=== PATIENT | male | born 1965 | race Caucasian/White ===

== ENCOUNTER 2021-06-03 15:16 | Observation (INO) ==
--- NOTE | 2021-06-03 16:09 | CT Scan Report ---
HEAD CT NONCONTRAST CT DOSE: 537.48 mGy.cm HISTORY: Right-sided weakness and numbness. Possible stroke. TECHNIQUE: Multiaxial CT images of the head were performed without the use of intravenous contrast. A utomated exposure control was utilized for this study. A dose lowering technique was utilized adheri ng to the principles of ALARA. Comparison: None. Findings: The paranasal sinuses and mastoid air cells are clear. The calvarium and skull base are int act. There is an old left MCA territory infarct demonstrated by a large area of encephalomalacia. Thi s results in mild ex vacuo dilatation of the left lateral ventricle. There is no mass, hematoma, midl ine shift, acute infarct. Impression: 1. No acute intracranial abnormality. 2. Old left MCA territory infarct. ACT 112: Negative or not required by law. Electronically signed by: Geronimo Javier M.D. 06/03/2021 4:08 PM
[2021-06-03] MEDS ORDERED: OPTIRAY 320 125ml IV ONE (16:22)
[2021-06-03 16:25] LABS: Hematocrit (blood only) 38.8 % (42-52); Hemoglobin 13.6 g/dL (14.0-18.0); Mean Corpuscular Hemoglobin 32.1 pg (25-34); Mean Corpuscular Hgb Conc 35.1 g/dL (32-36); Mean Corpuscular Volume 91.5 fL (80-100); Mean Platelet Volume 8.9 fL (7.4-10.4); Platelet Count 198 K/uL (130-400); RDW Coefficient of Variation 13.6 % (11.5-14.5); RDW Standard Deviation 45.2 fL (36.4-46.3); Red Blood Count 4.24 M/uL (4.7-6.1); White Blood Count 5.83 K/uL (4.8-10.8)
[2021-06-03 16:32] LABS: iSTAT Creatinine 0.8 mg/dl (0.6-1.3); iSTAT Hemoglobin 13.6 g/dl (14.0-18.0); iSTAT Ionized Calcium 1.2 mmol/l (1.12-1.32); iSTAT Potassium 4.3 mmol/L (3.3-5.0)
[2021-06-03 16:43] LABS: Partial Thromboplastin Ratio 0.9; Partial Thromboplastin Time 24.3 Seconds (21.0-31.0); Prothrombin Time 10.3 Seconds (9.0-12.0)
[2021-06-03 16:44] LABS: Alanine Aminotransferase 32 U/L (12-78); Aspartate Aminotransferase 24 U/L (15-37); BUN Creatinine Ratio 9.3 (10-20); Blood Urea Nitrogen 8 mg/dl (7-18); Calcium 8.9 mg/dl (8.5-10.1); Carbon Dioxide 27 mmol/L (21-32); Chloride 97 mmol/L (98-107); Est GFR (African American) 112.9 ml/min; Est GFR (Non-African American) 97.4 ml/min; Glucose 96 mg/dl (70-99); Magnesium 2.4 mg/dl (1.8-2.4); Potassium 4.1 mmol/L (3.5-5.1); Sodium 131 mmol/L (136-145)
[2021-06-03 16:47] LABS: Albumin Globulin Ratio 1.1 (0.9-2); Alkaline Phosphatase 118 U/L (45-117); Bilirubin,Total 0.3 mg/dl (0.2-1); Globulin 3.8 gm/dl (2.5-4.0); Total Protein 7.8 gm/dl (6.4-8.2)
--- NOTE | 2021-06-03 16:48 | CT Scan Report ---
CT ANGIOGRAM OF THE BRAIN; CT ANGIOGRAM OF THE NECK CLINICAL HISTORY: Strokelike symptoms. Headache and weakness. COMPARISON STUDY: Unenhanced CT of the brain dated 06/03/2021. TECHNIQUE: Following the IV administration of 118 of Optiray 320, CT angiogram of the head and neck was performed from the aortic arch to the vertex. Images are reviewed in the axial, sagittal, and cor onal planes. 3-D MIPS images are created and assessed. IV contrast was administered without complicat ion. All measurements were calculated based on NASCET criteria. A dose lowering technique was utiliz ed adhering to the principles of ALARA. CT DOSE: 412.32 mGy.cm FINDINGS: Brain parenchyma: Left MCA territory encephalomalacia is consistent with a remote insult. There is as ymmetric atrophy of the cerebellum. There is no evidence of hemorrhage, mass effect, or evidence of a cute territorial ischemia noting angiographic phase technique. There is no evidence of enhancing mass lesion on the angiogram phase images. The ventricles, sulci, and cisterns are normal in configuratio n. Morin-white matter differentiation is preserved. No extra-axial fluid collection is seen. Thoracic aorta: Visualized portions of the thoracic aorta are normal in caliber. The aortic arch demo nstrates standard 3-vessel anatomy. Right carotid arterial system: The right common carotid artery is widely patent, as a right internal and external carotid arteries. Left carotid arterial system: The left common carotid artery is widely patent, as are the left product management internship al and external carotid arteries. Vertebral arteries: The vertebral arteries are widely patent bilaterally noting a right-sided dominan ce. Subclavian arteries: Widely patent bilaterally. Intracranial vasculature: There is atherosclerotic calcification of the cavernous carotid and vertebr al arteries. The internal carotid arteries are patent at the skull base, as are the anterior and midd le cerebral arteries bilaterally. The vertebrobasilar system and posterior cerebral arteries are wide ly patent. The right vertebral artery is dominant. There is no aneurysm, high-grade stenosis, or foca l vessel cut off seen throughout the intracranial circulation. Jugular veins: Patent bilaterally. Dural sinuses: Patent. Lung apices: Partially visualized upper lobe lung parenchyma appears clear. Soft tissues: The visualized pharyngeal soft tissues are normal in appearance noting angiographic pha se technique. The oropharyngeal airway appears widely patent. The salivary and thyroid glands are nor mal in appearance. No cervical lymphadenopathy is seen. Skeletal structures: The calvarium appears intact. The cervical spine is maintained noting multilevel spondylosis. No lytic or blastic lesion is identified. Orbits: The bony orbits are intact. Orbital contents are normal as visualized. Sinuses and mastoids: The paranasal sinuses are clear. The mastoid air cells are well pneumatized. IMPRESSION: 1. There is no evidence of hemorrhage, mass effect, or acute territorial ischemia noting angiographic phase technique. 2. Left MCA territory encephalomalacia is consistent with a remote insult. 3. Unremarkable CT angiogram of the brain. 4. Unremarkable CT angiogram of the neck. ACT 112: Negative or not required by law. Electronically signed by: Cuate Shelley M.D. 06/03/2021 4:46 PM
--- NOTE | 2021-06-03 16:49 | XRay Report ---
SINGLE VIEW CHEST CLINICAL HISTORY: Strokelike symptoms. FINDINGS: An AP, portable, upright chest radiograph is obtained No prior studies are available for co mparison at the time of dictation. The examination is degraded by portable technique and patient rota tion. The cardiomediastinal silhouette is unremarkable. There is bibasilar atelectasis. The lungs and pleural spaces are otherwise clear. No pneumothorax is seen. The bony thorax is grossly intact. Arth ritic change is seen in the left shoulder. IMPRESSION: No active disease in the chest. ACT 112: Negative or not required by law. Electronically signed by: Cuate Shelley M.D. 06/03/2021 4:48 PM
[2021-06-03 17:52] LABS: Troponin I < 0.015 ng/ml (0-0.045)
[2021-06-03] MEDS ORDERED: ASPIRIN CHEW 324 MG PO STA (18:50)
--- NOTE | 2021-06-03 18:59 | History & Physical Report ---
Date of Service June 03, 2021 Assessment & Plan (1) Symptoms of cerebrovascular accident (CVA): Plan: 55 year old male w/ PMHx of CVA, seizure disorder, and intellectual disability who presents w/ new right sided weakness and altered sensation and is outside tPA treatment window. It is uncertain how much of patient's current symptoms are new vs his baseline. - ddx: considered seizure, infection - HypoNa to 131, less likely to cause neurological symptoms. DM2 diet for now, defer IV fluids - check phenytoin lvls - blood culture and UA - limited by lack of prior outside records regarding stroke and seizure hx. - stroke no tPA orderset w/ q4 neuro checks - neuro consulted - MRI brain ordered - CTA head/neck reviewed, "Left MCA territory encephalomalacia is consistent with a remote insult" - increase home Atorva 20 to 40 mg (high intensity) - permissive hypertension - s/p ASA 325 mg in ED. - monitor via telemetry - trend trop. - consider thumb spica wrist brace if right hand contracture does not improve (2) Hypertension: Plan: - permissive HTN s/p possible stroke. hold home antihypertensives (3) Dyslipidemia: Plan: - increased dose of statin to high dose (4) History of rheumatic fever as a child: Plan: 05/13/21 outpatient echo w/o mention of vegetation or shunt - defer repeat echo unless brain MRI suggestive of embolic stroke (5) Mitral regurgitation: Plan: moderate to severe MR, follows Dr. Heart last echo 05/13/21 Normal systolic function. Myxomatous mitral valve w/ mild prolapse. Mild-mod TR. (6) Seizure disorder: Plan: - per patient in remission x 20 years - continue home phenytoin - check phenytoin lvl (7) Asthma: Plan: - hold home PRN Xopenex. continue home Alvesco (8) Depression: Plan: - continue home regimen Plan: FEN/GI: HH diet. No IV fluids. ppx: Lovenox SQ code: full dispo: med/surg tele History of Present Illness Chief Complaint: CVA symptoms Primary Care Provider: MADHAVI Sharma Edgardo Mark is a 55 y/o male w/ PMHx of intellectual disability, HTN, HLD, MVP, myomatous mitral valve, seizure disorder, L CVA (w/ mild residual R sided wkness) and rheumatic fever during childhood who presents from [facility] w/ new right sided numbness and weakness since 299. No numbness. He states it is at his entire right lower extremity and right hand only, sparing right arm and shoulder. Severity of his symptoms have not changed since this morning. Patient denies other new symptomatic complaints. Per the 2 guards at bedside, patient has had some baseline residual R sided weakness but typically is very active and is seen walking frequently. Today, the patient had difficulty walking because of right leg weakness. The guards are unsure about patient's baseline regarding his hand. Covid immunization: J&J Mar 2021. History limited by use of video lymphedema therapist (Russian) and patient's intellectual disability. Allergies Allergy/AdvReac Type Severity Reaction Status Date / Time No Known Allergies Allergy Unknown Verified 06/03/21 18:11 Home Medications Medication Instructions Recorded Confirmed Type atorvastatin 20 mg tablet 20 mg PO DAILY 04/02/20 06/03/21 History fluoxetine 10 mg capsule 10 mg PO DAILY 04/02/20 06/03/21 History levalbuterol tartrate 45 2 inh INHALATION Q6H PRN 04/02/20 06/03/21 History mcg/actuation aerosol inhaler (Xopenex HFA) risperidone 2 mg tablet 2 mg PO HS tab 05/13/21 06/03/21 History ciclesonide 160 mcg/actuation 2 puff INHALATION Q12H 06/03/21 06/03/21 History aerosol inhaler (Alvesco) risperidone 3 mg tablet 6 mg PO HS 06/03/21 06/03/21 History phenytoin sodium extended 300 mg 300 mg PO DAILY #0 cap 06/04/21 06/03/21 Rx capsule Past Med/Surg History Medical History (Updated 06/04/21 @ 08:56 by Marvin Sadler MD) Aphasia as late effect of cerebrovascular accident Asthma CVA (cerebral vascular accident) Depression Dyslipidemia Heart murmur Hemiparesis affecting dominant side as late effect of cerebrovascular accident Intellectual disability Left ventricular hypertrophy Mitral regurgitation Psychosis Rheumatic fever Seizure disorder Family History Father Heart disease Mother Heart disease Social History Smoking Status: Never smoker Hx Alcohol Use: No Hx Substance Use: No Preferred Language: 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 Chronic mild blurry vision at baseline. Cardiovascular: Denies chest pain/ Chronic mild palpitations. Respiratory: Denies shortness of breath Gastrointestinal: Denies abdominal pain, nausea, vomiting, constipation, diarrhea Genitourinary: + uurinay frequency Musculoskeletal: Denies muscle aches/pain, joint aches/pain Neurological: Denies headache, tingling. + R hand and RLE numbness and weakness. Physical Exam Physical Exam: General: Grossly A&O. NAD. Cooperative. HEENT: Atraumatic, normocephalic. Exam limited by intellectual disability. PERRL. No carotid bruits. Unable to fully cooperate during finger to nose testing. Very slightly R lower faial nando. Pulm: CTAB. -wheezes, -rales, -rhonchi. No respiratory distress. Cardiac: RRR, 3/6 holosytsolic murmur at pulmonic regurg, no reradiation to carotisRad.ial pulses intact and symmetrical. No LE edema. Abdominal: Nontender, nondistended. Toned abd muscles. Integ: Warm, dry intact Neuro: 5+/5 strength and sensation of LUE, BLE, and R shoulder and arm; R fist is in contracture position. 1+/5 strength of R handgrip. Patient is able to lift both feet and move his R arm. Results & Data Results & Data ([facility]) Vital Signs (Past 12 Hours) Vital Signs Temp Pulse Resp BP Pulse Ox 06/03/21 18:50 61 13 97 06/03/21 18:40 64 12 97 06/03/21 18:30 62 15 97 06/03/21 18:20 62 16 97 06/03/21 18:10 61 14 98 06/03/21 18:00 65 13 149/91 H 98 06/03/21 17:50 61 14 97 06/03/21 17:40 62 14 06/03/21 17:30 86 16 06/03/21 17:20 64 16 97 06/03/21 17:10 64 16 97 06/03/21 17:00 62 15 97 06/03/21 16:50 65 14 98 06/03/21 16:42 65 20 97 06/03/21 16:00 78 20 99 06/03/21 15:23 36.5 C 71 18 120/82 97 Laboratory Results No leukocytosis. Hb 13.6. coags wnl. Hypo Na 131.Cr 0.85. alk phos mildly elev 118. neg trop x1. blood cultures ordered Cardiac Enzymes 06/03/21 Range/Units 16:16 AST 24 (15-37) U/L Troponin I < 0.015 (0-0.045) ng/ml Coagulation 06/03/21 Range/Units 16:16 PT 10.3 (9.0-12.0) Seconds APTT 24.3 (21.0-31.0) Seconds CBC 06/03/21 Range/Units 16:16 WBC 5.83 (4.8-10.8) K/uL RBC 4.24 L (4.7-6.1) M/uL Hgb 13.6 L (14.0-18.0) g/dL Hct 38.8 L (42-52) % Plt Count 198 (130-400) K/uL Comprehensive Metabolic Panel 06/03/21 Range/Units 16:16 Sodium 131 L (136-145) mmol/L Potassium 4.1 (3.5-5.1) mmol/L Chloride 97 L (98-107) mmol/L Carbon Dioxide 27 (21-32) mmol/L BUN 8 (7-18) mg/dl Creatinine 0.85 (0.6-1.4) mg/dl Glucose 96 (70-99) mg/dl Calcium 8.9 (8.5-10.1) mg/dl AST 24 (15-37) U/L ALT 32 (12-78) U/L Alkaline Phosphatase 118 H (45-117) U/L Total Protein 7.8 (6.4-8.2) gm/dl Albumin 4.0 (3.4-5.0) gm/dl Intake and Output 06/03/21 06/03/21 06/03/21 06:59 14:59 22:59 Other: Weight 68.039 kg Patient Weight 06/04/21 06:59 Weight 68.039 kg Diagnostic Findings Chest X-Ray 06/03/21 16:00 SINGLE VIEW CHEST CLINICAL HISTORY: Strokelike symptoms. FINDINGS: An AP, portable, upright chest radiograph is obtained No prior studies are available for comparison at the time of dictation. The examination is degraded by portable technique and patient rotation. The cardiomediastinal silhouette is unremarkable. There is bibasilar atelectasis. The lungs and pleural spaces are otherwise clear. No pneumothorax is seen. The bony thorax is grossly intact. Arthritic change is seen in the left shoulder. IMPRESSION: No active disease in the chest. ACT 112: Negative or not required by law. Electronically signed by: Cuate Shelley M.D. 06/03/2021 4:[address] 06/03/21 16:[address] DOSE: 537.48 mGy.cm HISTORY: Right-sided weakness and numbness. Possible stroke. TECHNIQUE: Multiaxial CT images of the head were performed without the use of intravenous contrast. Automated exposure control was utilized for this study. A dose lowering technique was utilized adhering to the principles of ALARA. Comparison: None. Findings: The paranasal sinuses and mastoid air cells are clear. The calvarium and skull base are intact. There is an old left MCA territory infarct demonstrated by a large area of encephalomalacia. This results in mild ex vacuo dilatation of the left lateral ventricle. There is no mass, hematoma, midline shift, acute infarct. Impression: 1. No acute intracranial abnormality. 2. Old left MCA territory infarct. ACT 112: Negative or not required by law. Electronically signed by: Geronimo Javier M.D. 06/03/2021 4:08 PM Head CTA 06/03/21 16:09 CT ANGIOGRAM OF THE BRAIN; CT ANGIOGRAM OF THE NECK CLINICAL HISTORY: Strokelike symptoms. Headache and weakness. COMPARISON STUDY: Unenhanced CT of the brain dated 06/03/2021. TECHNIQUE: Following the IV administration of 118 of Optiray 320, CT angiogram of the head and neck was performed from the aortic arch to the vertex. Images are reviewed in the axial, sagittal, and coronal planes. 3-D MIPS images are created and assessed. IV contrast was administered without complication. All measurements were calculated based on NASCET criteria. A dose lowering technique was utilized adhering to the principles of ALARA. CT DOSE: 412.32 mGy.cm FINDINGS: Brain parenchyma: Left MCA territory encephalomalacia is consistent with a remote insult. There is asymmetric atrophy of the cerebellum. There is no evidence of hemorrhage, mass effect, or evidence of acute territorial ischemia noting angiographic phase technique. There is no evidence of enhancing mass lesion on the angiogram phase images. The ventricles, sulci, and cisterns are no rmal in configuration. Morin-white matter differentiation is preserved. No extra- axial fluid collection is seen. Thoracic aorta: Visualized portions of the thoracic aorta are normal in caliber. The aortic arch demonstrates standard 3-vessel anatomy. Right carotid arterial system: The right common carotid artery is widely patent, as a right internal and external carotid arteries. Left carotid arterial system: The left common carotid artery is widely patent, as are the left internal and external carotid arteries. Vertebral arteries: The vertebral arteries are widely patent bilaterally noting a right-sided dominance. Subclavian arteries: Widely patent bilaterally. Intracranial vasculature: There is atherosclerotic calcification of the cavernous carotid and vertebral arteries. The internal carotid arteries are patent at the skull base, as are the anterior and middle cerebral arteries bilaterally. The vertebrobasilar system and posterior cerebral arteries are widely patent. The right vertebral artery is dominant. There is no aneurysm, high-grade stenosis, or focal vessel cut off seen throughout the intracranial circulation. Jugular veins: Patent bilaterally. Dural sinuses: Patent. Lung apices: Partially visualized upper lobe lung parenchyma appears clear. Soft tissues: The visualized pharyngeal soft tissues are normal in appearance noting angiographic phase technique. The oropharyngeal airway appears widely patent. The salivary and thyroid glands are normal in appearance. No cervical lymphadenopathy is seen. Skeletal structures: The calvarium appears intact. The cervical spine is maintained noting multilevel spondylosis. No lytic or blastic lesion is identified. Orbits: The bony orbits are intact. Orbital contents are normal as visualized. Sinuses and mastoids: The paranasal sinuses are clear. The mastoid air cells are well pneumatized. IMPRESSION: 1. There is no evidence of hemorrhage, mass effect, or acute territorial ischemia noting angiographic phase technique. 2. Left MCA territory encephalomalacia is consistent with a remote insult. 3. Unremarkable CT angiogram of the brain. 4. Unremarkable CT angiogram of the neck. ACT 112: Negative or not required by law. Electronically signed by: Cuate Shelley M.D. 06/03/2021 4:46 PM Neck CTA 06/03/21 16:09 CT ANGIOGRAM OF THE BRAIN; CT ANGIOGRAM OF THE NECK CLINICAL HISTORY: Strokelike symptoms. Headache and weakness. COMPARISON STUDY: Unenhanced CT of the brain dated 06/03/2021. TECHNIQUE: Following the IV administration of 118 of Optiray 320, CT angiogram of the head and neck was performed from the aortic arch to the vertex. Images are reviewed in the axial, sagittal, and coronal planes. 3-D MIPS images are created and assessed. IV contrast was administered without complication. All measurements were calculated based on NASCET criteria. A dose lowering technique was utilized adhering to the principles of ALARA. CT DOSE: 412.32 mGy.cm FINDINGS: Brain parenchyma: Left MCA territory encephalomalacia is consistent with a remote insult. There is asymmetric atrophy of the cerebellum. There is no evidence of hemorrhage, mass effect, or evidence of acute territorial ischemia noting angiographic phase technique. There is no evidence of enhancing mass lesion on the angiogram phase images. The ventricles, sulci, and cisterns are normal in configuration. Morin-white matter differentiation is preserved. No extra-axial fluid collection is seen. Thoracic aorta: Visualized portions of the thoracic aorta are normal in caliber. The aortic arch demonstrates standard 3-vessel anatomy. Right carotid arterial system: The right common carotid artery is widely patent, as a right internal and external carotid arteries. Left carotid arterial system: The left common carotid artery is widely patent, as are the left internal and external carotid arteries. Vertebral arteries: The vertebral arteries are widely patent bilaterally noting a right-sided dominance. Subclavian arteries: Widely patent bilaterally. Intracranial vasculature: There is atherosclerotic calcification of the cavernous carotid and vertebral arteries. The internal carotid arteries are patent at the skull base, as are the anterior and middle cerebral arteries bilaterally. The vertebrobasilar system and posterior cerebral arteries are wide ly patent. The right vertebral artery is dominant. There is no aneurysm, high- grade stenosis, or focal vessel cut off seen throughout the intracranial circulation. Jugular veins: Patent bilaterally. Dural sinuses: Patent. Lung apices: Partially visualized upper lobe lung parenchyma appears clear. Soft tissues: The visualized pharyngeal soft tissues are normal in appearance noting angiographic phase technique. The oropharyngeal airway appears widely patent. The salivary and thyroid glands are normal in appearance. No cervical lymphadenopathy is seen. Skeletal structures: The calvarium appears intact. The cervical spine is maintained noting multilevel spondylosis. No lytic or blastic lesion is identified. Orbits: The bony orbits are intact. Orbital contents are normal as visualized. Sinuses and mastoids: The paranasal sinuses are clear. The mastoid air cells are well pneumatized. IMPRESSION: 1. There is no evidence of hemorrhage, mass effect, or acute territorial isch emia noting angiographic phase technique. 2. Left MCA territory encephalomalacia is consistent with a remote insult. 3. Unremarkable CT angiogram of the brain. 4. Unremarkable CT angiogram of the neck. ACT 112: Negative or not required by law. Electronically signed by: Cuate Shelley M.D. 06/03/2021 4:46 PM ECG Additional Comments: ems in paper chart reviewed and w/o acute ischemic changes Code Status & VTE Plan Code Status full VTE Prophylaxis Plan VTE Prophylaxis will be ordered: Yes Supervising Physician Co-Signing Physician Notes Attending addendum: I have physically seen this patient, have supervised the medical residents activities, and agree with the H&P unless as otherwise noted. Assessment and Plan: Strokelike symptoms- The patient will be admitted to telemetry for serial cardiac enzymes, serial EKG's, cardiac rhythm monitoring and a 2-D echocardiogram with Dopplers. Stroke without TPA order set CT head shows old left MCA infarct and encephalomalacia. Patient has chronic right sided weakness Difficult examination and process with language barrier and intellectual barrier Order MRI brain without contrast Permissive hypertension Increase atorvastatin from 20 to 40 mg Check a fasting lipid panel and hemoglobin A1c Consult PT/OT/speech/neurology Remaining orders and notations as noted Resident Activity Tracking Resident Involvement: Resident Care Provided Care Provided: Adult [facility]
--- NOTE | 2021-06-03 19:16 | Emergency Department Note ---
History of Present Illness General Chief complaint: Stroke/CVA Symptoms Stated complaint: RIGHT SIDED NUMBNESS Time Seen by Provider: 06/03/21 16:01 Source: patient, RN notes reviewed, clinic supervisor and police History of Present Illness Provider complaint: Right-sided weakness and numbness Onset (ago): hour(s) (13) Location: right Radiation: non-radiation Maximum Pain Intensity: 0 Associated symptoms: + weakness; no chest pain, no cough, no fever/chills, no headaches, no nausea/vomiting, no seizure, no shortness of breath or no syncope 55-year-old male prisoner presents emergency department for right-sided numbness and weakness. Patient states at 0300, he noticed he woke up and was unable to feel the right side of his body or move his right upper or lower extremity. Patient denies any trauma. He denies any fever. He denies any falls. Home Medications Medication Instructions Recorded Confirmed Type atorvastatin 20 mg tablet 20 mg PO DAILY 04/02/20 06/03/21 History fluoxetine 10 mg capsule 10 mg PO DAILY 04/02/20 06/03/21 History levalbuterol tartrate 45 2 inh INHALATION Q6H PRN 04/02/20 06/03/21 History mcg/actuation aerosol inhaler (Xopenex HFA) losartan 50 mg tablet (Cozaar) 50 mg PO DAILY 05/13/21 06/03/21 History phenytoin sodium extended 100 mg 200 mg PO 4XWK cap 05/13/21 06/03/21 History capsule phenytoin sodium extended 300 mg 300 mg PO 3XWK cap 05/13/21 06/03/21 History capsule risperidone 2 mg tablet 2 mg PO HS tab 05/13/21 06/03/21 History ciclesonide 160 mcg/actuation 2 puff INHALATION Q12H 06/03/21 06/03/21 History aerosol inhaler (Alvesco) risperidone 3 mg tablet 6 mg PO HS 06/03/21 06/03/21 History Allergies Allergy/AdvReac Type Severity Reaction Status Date / Time No Known Allergies Allergy Unknown Verified 06/03/21 18:11 Past Med/Surg History Medical History Asthma CVA (cerebral vascular accident) Depression Dyslipidemia Heart murmur Intellectual disability Left ventricular hypertrophy Mitral regurgitation Psychosis Rheumatic fever Seizure disorder Family History Father Heart disease Mother Heart disease Social History Smoking Status: Never smoker Current Living Situation: Other Current Living Situation Comment: Patient is an inmate at the [facility] Feels Safe at Home: Yes Review of Systems A total of 10 systems reviewed and were otherwise negative Physical Exam Vital Signs Vital Signs - 24 hr 06/03/21 15:23 06/03/21 16:00 06/03/21 16:42 Temperature 36.5 C Temperature Source Temporal Artery Scan Pulse Rate 71 78 65 Pulse Rate from SpO2 Sensor 65 Pulse Rhythm Regular Respiratory Rate 18 20 20 Blood Pressure 120/82 Blood Pressure Mean 94 Pulse Oximetry 97 99 97 Oxygen Delivery Method Room Air Room Air Sepsis Recent Fever Within 48 Hours No Sepsis New/Unexplained Change in Mental Status No Sepsis Action Taken by Nursing No Action Required 06/03/21 16:50 06/03/21 17:00 06/03/21 17:10 Temperature Temperature Source Pulse Rate 65 62 64 Pulse Rate from SpO2 Sensor 65 62 65 Pulse Rhythm Respiratory Rate 14 15 16 Blood Pressure Blood Pressure Mean Pulse Oximetry 98 97 97 Oxygen Delivery Method Sepsis Recent Fever Within 48 Hours Sepsis New/Unexplained Change in Mental Status Sepsis Action Taken by Nursing 06/03/21 17:20 06/03/21 17:30 06/03/21 17:40 Temperature Temperature Source Pulse Rate 64 86 62 Pulse Rate from SpO2 Sensor 64 Pulse Rhythm Respiratory Rate 16 16 14 Blood Pressure Blood Pressure Mean Pulse Oximetry 97 Oxygen Delivery Method Sepsis Recent Fever Within 48 Hours Sepsis New/Unexplained Change in Mental Status Sepsis Action Taken by Nursing 06/03/21 17:50 06/03/21 18:00 06/03/21 18:10 Temperature Temperature Source Pulse Rate 61 65 61 Pulse Rate from SpO2 Sensor 61 64 61 Pulse Rhythm Respiratory Rate 14 13 14 Blood Pressure 149/91 H Blood Pressure Mean 110 Pulse Oximetry 97 98 98 Oxygen Delivery Method Sepsis Recent Fever Within 48 Hours Sepsis New/Unexplained Change in Mental Status Sepsis Action Taken by Nursing 06/03/21 18:20 06/03/21 18:30 06/03/21 18:40 Temperature Temperature Source Pulse Rate 62 62 64 Pulse Rate from SpO2 Sensor 62 62 63 Pulse Rhythm Respiratory Rate 16 15 12 Blood Pressure Blood Pressure Mean Pulse Oximetry 97 97 97 Oxygen Delivery Method Sepsis Recent Fever Within 48 Hours Sepsis New/Unexplained Change in Mental Status Sepsis Action Taken by Nursing 06/03/21 18:50 Temperature Temperature Source Pulse Rate 61 Pulse Rate from SpO2 Sensor 61 Pulse Rhythm Respiratory Rate 13 Blood Pressure Blood Pressure Mean Pulse Oximetry 97 Oxygen Delivery Method Sepsis Recent Fever Within 48 Hours Sepsis New/Unexplained Change in Mental Status Sepsis Action Taken by Nursing Physical Exam GENERAL: He does not appear distressed. HENT: Exam performed. - Head: Normocephalic and atraumatic. - Right Ear: External ear normal. No mastoid tenderness. - Left Ear: External ear normal. No mastoid tenderness. - Mouth/Throat: The oropharynx is clear and moist. No trismus in the jaw. No dental abscesses or uvula swelling. No oropharyngeal exudate or tonsillar abscesses. EYES: Conjunctivae and EOM are normal. Pupils are equal, round, and reactive to light. Right eye exhibits no discharge. Left eye exhibits no discharge. No scleral icterus. NECK: Normal range of motion. Neck supple. No JVD present. No spinous process tenderness present. No carotid bruit present. No rigidity. No tracheal deviation and normal range of motion present. No Brudzinski's sign and no Kernig's sign noted. CV: Normal rate, regular rhythm, heart murmur and intact distal pulses. There is no peripheral edema. Palpable radial pulses bue. PULM/CHEST: Effort normal and breath sounds normal. No respiratory distress. No stridor. He has no wheezes. He has no rales. - Chest Wall: He exhibits no tenderness. ABD: The abdomen is soft. Bowel sounds are normal. He has no distension. No mass is present. There is no tenderness. There is no rebound, no guarding, no Triplett's sign and no tenderness at McBurney's point. Rovsig negative. NEURO: NIHSS: 8 (4:1, 5a:2, 6a:2, 7:2, 8:1) Course Course 1601: The patient was evaluated in room C7. A complete history and physical exam was performed Cardiac monitoring: An order was placed for continuous cardiac monitoring. The monitor shows a rate of 60 with sinus rhythm Patient was seen during a time of extreme volume and extreme acuity during the COVID-19 pandemic. Nursing triage protocols were initiated and labs were drawn by protocol. CT viewed by ri does show a left infarct in the MCA distribution. It is unclear to me if this is old or new, the patient is outside the window of TPA and no code stroke will be called. We will send the patient back for CT angio of the head and neck to see if there is any occlusion that could be amenable to endovascular intervention. 1800: CT of the head shows an old infarct. CT angios showed no acute occlusions. Labs are within normal limits. [facility] team for stroke. Dr. Rubio notified. Administered Medications Discontinued Medications Aspirin (Aspirin Chew 324 Mg) 324 mg PO NOW STA Stop: 06/03/21 18:51 Last Admin: 06/03/21 18:59 Dose: 324 mg Documented by: [id number] Ioversol (Optiray 320 125ml) 118 ml IV ONCE ONE Stop: 06/03/21 16:23 Last Admin: 06/03/21 16:26 Dose: 118 ml Documented by: [id number] Medical Decision Making Laboratory Data Result diagrams: 06/03/21 16:16 06/03/21 16:16 Lab Results 06/03/21 06/03/21 06/03/21 Range/Units 16:16 16:16 16:16 WBC 5.83 (4.8-10.8) K/uL RBC 4.24 L (4.7-6.1) M/uL Hgb 13.6 L (14.0-18.0) g/dL POC Hgb (14.0-18.0) g/dl Hct 38.8 L (42-52) % POC Hct (42-52) % MCV 91.5 (80-100) fL MCH 32.1 (25-34) pg MCHC 35.1 (32-36) g/dL RDW Std Deviation 45.2 (36.4-46.3) fL RDW Coeff of Pamela 13.6 (11.5-14.5) % Plt Count 198 (130-400) K/uL MPV 8.9 (7.4-10.4) fL PT 10.3 (9.0-12.0) Seconds INR 1.0 (0.9-1.1) APTT 24.3 (21.0-31.0) Seconds PTT Ratio 0.9 POC Sodium (135-144) mmol/L Sodium 131 L (136-145) mmol/L POC Potassium (3.3-5.0) mmol/L Potassium 4.1 (3.5-5.1) mmol/L POC Chloride (101-112) mmol/L Chloride 97 L (98-107) mmol/L Carbon Dioxide 27 (21-32) mmol/L POC Total CO2 (24-31) mmol/L Anion Gap 7.0 (3-11) POC Anion Gap (16-25) mmol/L POC BUN (7-18) mg/dl BUN 8 (7-18) mg/dl Creatinine 0.85 (0.6-1.4) mg/dl POC Creatinine (0.6-1.3) mg/dl Est Cr Clr Drug Dosing Not Reportable Est GFR ( Amer) 112.9 ml/min Est GFR (Non-Af Amer) 97.4 ml/min BUN/Creatinine Ratio 9.3 L (10-20) Glucose 96 (70-99) mg/dl POC Glucose (other) (70-99) mg/dl Calcium 8.9 (8.5-10.1) mg/dl POC Ioniz Calcium Severino (1.12-1.32) mmol/l Magnesium 2.4 (1.8-2.4) mg/dl Total Bilirubin 0.3 (0.2-1) mg/dl AST 24 (15-37) U/L ALT 32 (12-78) U/L Alkaline Phosphatase 118 H (45-117) U/L Troponin I < 0.015 (0-0.045) ng/ml Total Protein 7.8 (6.4-8.2) gm/dl Albumin 4.0 (3.4-5.0) gm/dl Globulin 3.8 (2.5-4.0) gm/dl Albumin/Globulin Ratio 1.1 (0.9-2) 06/03/21 Range/Units 16:19 WBC (4.8-10.8) K/uL RBC (4.7-6.1) M/uL Hgb (14.0-18.0) g/dL POC Hgb 13.6 L (14.0-18.0) g/dl Hct (42-52) % POC Hct 40 L (42-52) % MCV (80-100) fL MCH (25-34) pg MCHC (32-36) g/dL RDW Std Deviation (36.4-46.3) fL RDW Coeff of Pamela (11.5-14.5) % Plt Count (130-400) K/uL MPV (7.4-10.4) fL PT (9.0-12.0) Seconds INR (0.9-1.1) APTT (21.0-31.0) Seconds PTT Ratio POC Sodium 130 L (135-144) mmol/L Sodium (136-145) mmol/L POC Potassium 4.3 (3.3-5.0) mmol/L Potassium (3.5-5.1) mmol/L POC Chloride 93 L (101-112) mmol/L Chloride (98-107) mmol/L Carbon Dioxide (21-32) mmol/L POC Total CO2 26 (24-31) mmol/L Anion Gap (3-11) POC Anion Gap 16.0 (16-25) mmol/L POC BUN 7 (7-18) mg/dl BUN (7-18) mg/dl Creatinine (0.6-1.4) mg/dl POC Creatinine 0.8 (0.6-1.3) mg/dl Est Cr Clr Drug Dosing Est GFR ( Amer) ml/min Est GFR (Non-Af Amer) ml/min BUN/Creatinine Ratio (10-20) Glucose (70-99) mg/dl POC Glucose (other) 95 (70-99) mg/dl Calcium (8.5-10.1) mg/dl POC Ioniz Calcium Severino 1.20 (1.12-1.32) mmol/l Magnesium (1.8-2.4) mg/dl Total Bilirubin (0.2-1) mg/dl AST (15-37) U/L ALT (12-78) U/L Alkaline Phosphatase (45-117) U/L Troponin I (0-0.045) ng/ml Total Protein (6.4-8.2) gm/dl Albumin (3.4-5.0) gm/dl Globulin (2.5-4.0) gm/dl Albumin/Globulin Ratio (0.9-2) Imaging Data Radiologist's Impression: Chest X-Ray 06/03/21 16:00 SINGLE VIEW CHEST CLINICAL HISTORY: Strokelike symptoms. FINDINGS: An AP, portable, upright chest radiograph is obtained No prior studies are available for comparison at the time of dictation. The examination is degraded by portable technique and patient rotation. The cardiomediastinal silhouette is unremarkable. There is bibasilar atelectasis. The lungs and pleural spaces are otherwise clear. No pneumothorax is seen. The bony thorax is grossly intact. Arthritic change is seen in the left shoulder. IMPRESSION: No active disease in the chest. ACT 112: Negative or not required by law. Electronically signed by: Cuate Shelley M.D. 06/03/2021 4:[address] 06/03/21 16:[address] DOSE: 537.48 mGy.cm HISTORY: Right-sided weakness and numbness. Possible stroke. TECHNIQUE: Multiaxial CT images of the head were performed without the use of intravenous contrast. Automated exposure control was utilized for this study. A dose lowering technique was utilized adhering to the principles of ALARA. Comparison: None. Findings: The paranasal sinuses and mastoid air cells are clear. The calvarium and skull base are intact. There is an old left MCA territory infarct demonstrated by a large area of encephalomalacia. This results in mild ex vacuo dilatation of the left lateral ventricle. There is no mass, hematoma, midline shift, acute infarct. Impression: 1. No acute intracranial abnormality. 2. Old left MCA territory infarct. ACT 112: Negative or not required by law. Electronically signed by: Geronimo Javier M.D. 06/03/2021 4:08 PM Head CTA 06/03/21 16:09 CT ANGIOGRAM OF THE BRAIN; CT ANGIOGRAM OF THE NECK CLINICAL HISTORY: Strokelike symptoms. Headache and weakness. COMPARISON STUDY: Unenhanced CT of the brain dated 06/03/2021. TECHNIQUE: Following the IV administration of 118 of Optiray 320, CT angiogram of the head and neck was performed from the aortic arch to the vertex. Images are reviewed in the axial, sagittal, and coronal planes. 3-D MIPS images are created and assessed. IV contrast was administered without complication. All m easurements were calculated based on NASCET criteria. A dose lowering technique was utilized adhering to the principles of ALARA. CT DOSE: 412.32 mGy.cm FINDINGS: Brain parenchyma: Left MCA territory encephalomalacia is consistent with a remote insult. There is asymmetric atrophy of the cerebellum. There is no evidence of hemorrhage, mass effect, or evidence of acute territorial ischemia noting angiographic phase technique. There is no evidence of enhancing mass lesion on the angiogram phase images. The ventricles, sulci, and cisterns are normal in configuration. Morin-white matter differentiation is preserved. No extra-axial fluid collection is seen. Thoracic aorta: Visualized portions of the thoracic aorta are normal in caliber. The aortic arch demonstrates standard 3-vessel anatomy. Right carotid arterial system: The right common carotid artery is widely patent, as a right internal and external carotid arteries. Left carotid arterial system: The left common carotid artery is widely patent, as are the left internal and external carotid arteries. Vertebral arteries: The vertebral arteries are widely patent bilaterally noting a right-sided dominance. Subclavian arteries: Widely patent bilaterally. Intracranial vasculature: There is atherosclerotic calcification of the cavernous carotid and vertebral arteries. The internal carotid arteries are p atent at the skull base, as are the anterior and middle cerebral arteries bilaterally. The vertebrobasilar system and posterior cerebral arteries are widely patent. The right vertebral artery is dominant. There is no aneurysm, high-grade stenosis, or focal vessel cut off seen throughout the intracranial circulation. Jugular veins: Patent bilaterally. Dural sinuses: Patent. Lung apices: Partially visualized upper lobe lung parenchyma appears clear. Soft tissues: The visualized pharyngeal soft tissues are normal in appearance noting angiographic phase technique. The oropharyngeal airway appears widely patent. The salivary and thyroid glands are normal in appearance. No cervical lymphadenopathy is seen. Skeletal structures: The calvarium appears intact. The cervical spine is maintained noting multilevel spondylosis. No lytic or blastic lesion is identified. Orbits: The bony orbits are intact. Orbital contents are normal as visualized. Sinuses and mastoids: The paranasal sinuses are clear. The mastoid air cells are well pneumatized. IMPRESSION: 1. There is no evidence of hemorrhage, mass effect, or acute territorial ischemia noting angiographic phase technique. 2. Left MCA territory encephalomalacia is consistent with a remote insult. 3. Unremarkable CT angiogram of the brain. 4. Unremarkable CT angiogram of the neck. ACT 112: Negative or not required by law. Electronically signed by: Cuate Shelley M.D. 06/03/2021 4:46 PM Neck CTA 06/03/21 16:09 CT ANGIOGRAM OF THE BRAIN; CT ANGIOGRAM OF THE NECK CLINICAL HISTORY: Strokelike symptoms. Headache and weakness. COMPARISON STUDY: Unenhanced CT of the brain dated 06/03/2021. TECHNIQUE: Following the IV administration of 118 of Optiray 320, CT angiogram of the head and neck was performed from the aortic arch to the vertex. Images are reviewed in the axial, sagittal, and coronal planes. 3-D MIPS images are created and assessed. IV contrast was administered without complication. All measurements were calculated based on NASCET criteria. A dose lowering technique was utilized adhering to the principles of ALARA. CT DOSE: 412.32 mGy.cm FINDINGS: Brain parenchyma: Left MCA territory encephalomalacia is consistent with a remote insult. There is asymmetric atrophy of the cerebellum. There is no evidence of hemorrhage, mass effect, or evidence of acute territorial ischemia noting angiographic phase technique. There is no evidence of enhancing mass lesion on the angiogram phase images. The ventricles, sulci, and cisterns are normal in configuration. Morin-white matter differentiation is preserved. No extra-axial fluid collection is seen. Thoracic aorta: Visualized portions of the thoracic aorta are normal in caliber. The aortic arch demonstrates standard 3-vessel anatomy. Right carotid arterial system: The right common carotid artery is widely patent, as a right internal and external carotid arteries. Left carotid arterial system: The left common carotid artery is widely patent, a s are the left internal and external carotid arteries. Vertebral arteries: The vertebral arteries are widely patent bilaterally noting a right-sided dominance. Subclavian arteries: Widely patent bilaterally. Intracranial vasculature: There is atherosclerotic calcification of the cavernous carotid and vertebral arteries. The internal carotid arteries are patent at the skull base, as are the anterior and middle cerebral arteries bilaterally. The vertebrobasilar system and posterior cerebral arteries are widely patent. The right vertebral artery is dominant. There is no aneurysm, high-grade stenosis, or focal vessel cut off seen throughout the intracranial circulation. Jugular veins: Patent bilaterally. Dural sinuses: Patent. Lung apices: Partially visualized upper lobe lung parenchyma appears clear. Soft tissues: The visualized pharyngeal soft tissues are normal in appearance noting angiographic phase technique. The oropharyngeal airway appears widely patent. The salivary and thyroid glands are normal in appearance. No cervical lymphadenopathy is seen. Skeletal structures: The calvarium appears intact. The cervical spine is maintained noting multilevel spondylosis. No lytic or blastic lesion is identified. Orbits: The bony orbits are intact. Orbital contents are normal as visualized. Sinuses and mastoids: The paranasal sinuses are clear. The mastoid air cells are well pneumatized. IMPRESSION: 1. There is no evidence of hemorrhage, mass effect, or acute territorial ischemia noting angiographic phase technique. 2. Left MCA territory encephalomalacia is consistent with a remote insult. 3. Unremarkable CT angiogram of the brain. 4. Unremarkable CT angiogram of the neck. ACT 112: Negative or not required by law. Electronically signed by: Cuate Shelley M.D. 06/03/2021 4:46 PM ECG Data Additional Comments: EKG #1 at 1644: Sinus rhythm with rate of 63. HI QRS and QTc intervals are within normal limits. No ST elevation or ST depression. EKG #2 at 1650: Sinus rhythm with a rate of 64. HI QRS and QTc intervals within normal limits. No ST elevation or ST depression. [facility] Narrative 1601: The patient was evaluated in room C7. A complete history and physical exam was performed Cardiac monitoring: An order was placed for continuous cardiac monitoring. The monitor shows a rate of 60 with sinus rhythm Patient was seen during a time of extreme volume and extreme acuity during the COVID-19 pandemic. Nursing triage protocols were initiated and labs were drawn by protocol. CT viewed by me does show a left infarct in the MCA distribution. It is unclear to me if this is old or new, the patient is outside the window of TPA and no code stroke will be called. We will send the patient back for CT angio of the head and neck to see if there is any occlusion that could be amenable to endovascular intervention. 1800: CT of the head shows an old infarct. CT angios showed no acute occlusions. Labs are within normal limits. Patient will be admitted to the [facility] hospitalist team for stroke. Dr. Rubio notified. Impression & Plan Cerebrovascular accident Discharge Plan Visit Data Chief Complaint: Stroke/CVA Symptoms Stated Complaint: RIGHT SIDED NUMBNESS Discharge Problem: Cerebrovascular accident Patient Disposition: Admitted As Inpatient Forms Stand Alone Forms: My [facility] Prescriptions Prescriptions: No Action atorvastatin 20 mg tablet 20 mg PO DAILY RF: 0 levalbuterol tartrate [Xopenex HFA] 45 mcg/actuation HFA aerosol inhaler 2 inh inhalation Q6H PRN (Reason: Shortness Of Breath) RF: 0 fluoxetine 10 mg capsule 10 mg PO DAILY RF: 0 phenytoin sodium extended 100 mg capsule 200 mg PO 4XWK RF: 0 risperidone 2 mg tablet 2 mg PO HS RF: 0 losartan [Cozaar] 50 mg tablet 50 mg PO DAILY RF: 0 phenytoin sodium extended 300 mg capsule 300 mg PO 3XWK RF: 0 Alvesco 160 mcg/actuation Hfa Aerosol Inhaler 2 puff INHALATION Q12H RF: 0 risperidone 3 mg Tablet 6 mg PO HS RF: 0 Referrals Referrals: Zachary HENDRICKSON [Primary Care Provider] -
--- NOTE | 2021-06-03 22:32 | Magnetic Resonance Report ---
MR brain wo con CLINICAL HISTORY: right sided weakness ?CVA TECHNIQUE: Multiplanar and multisequence MR images of the brain were obtained without intravenous con trast. Comparison: None available at the time of this dictation. FINDINGS: No abnormal restricted diffusion is identified. There is a large region of cystic encephalomalacia in the left MCA territory with underlying ventriculomegaly. There is no evidence of acute intraparenchy mal hemorrhage. No extra axial fluid collections are seen. There are no masses, mass effect, or midli ne shift. Ex vacuo ventriculomegaly and sulcal enlargement is noted compatible with diffuse encephalo malacia. The corpus callosum, pituitary gland, and cerebellar tonsils appear grossly unremarkable. Flow voids of the major intracranial arterial vessels are identified. The imaged portions of the para nasal sinuses, mastoid air cells, and orbits are unremarkable. IMPRESSION: No evidence of acute abnormality. Cystic encephalomalacia is seen compatible with old left MCA infarc t. ACT 112: Negative or not required by law. Electronically signed by: Andrae Pritchard M.D. 06/03/2021 10:31 PM
[2021-06-04] MEDS ORDERED: risperiDONE 3 MG TABLET PO SCH (00:21)
[2021-06-04] MEDS ORDERED: risperiDONE 2 MG TABLET PO SCH (00:21)
[2021-06-04] MEDS ORDERED: PHARMACIST DISCHARGE MED REC CONSULT PRN (00:21)
[2021-06-04] MEDS ORDERED: ACETAMINOPHEN 325 MG TAB PO PRN (00:21)
[2021-06-04] MEDS: ATORVASTATIN 40 MG TAB PO SCH ×2 (02:22→08:40)
--- NOTE | 2021-06-04 07:54 | Hospitalist Progress Note ---
Date of Service June 04, 2021 Assessment & Plan (1) Symptoms of cerebrovascular accident (CVA): Plan: 55 year old male w/ PMHx of CVA, seizure disorder, and intellectual disability who presents w/ new right sided weakness and altered sensation and is outside tPA treatment window. It is uncertain how much of patient's current symptoms are new vs his baseline. encephalopathy likely from seizure with low phenytoin on presentation, no new changes on imaging or angiography to support cva or tia - CTA head/neck reviewed, "Left MCA territory encephalomalacia is consistent with a remote insult" -MRI brain with no acute changes. chronic cystic encephalomalacia - Angiography of head and neck without acute concerns - since no concern for stroke and with possible seizure here, will not increase the statin, but will add daily aspirin - consider thumb spica wrist brace if right hand contracture does not improve (2) Hyponatremia: Plan: maybe siadh or medication influenced, pt is with euvolemia hyponatremia, recommend follow up communicated to correction (3) Hypertension: Plan: resume home antihypertensives (4) Dyslipidemia: Plan: - continue statin at pre hospital dose (5) History of rheumatic fever as a child: Plan: 05/13/21 outpatient echo w/o mention of vegetation or shunt - defer repeat echo as brain MRI suggestive of embolic stroke (6) Mitral regurgitation: Plan: moderate to severe MR, follows Dr. Heart last echo 05/13/21 Normal systolic function. Myxomatous mitral valve w/ mild prolapse. Mild-mod TR. (7) Seizure disorder: Plan: - per patient in remission x 20 years - phenytoin level is low on presentation, augment with fosphenytoin and follow level as will be on increased home doses to 300mg (8) Asthma: Plan: - hold home PRN Xopenex. continue home Alvesco (9) Depression: Plan: - fluoxetine and Risperdal Plan: full code Admission and Anticipated Discharge Date Admission Date: June 03, 2021 Subjective Transient neurological changes felt likely to be seizure due to subtherapeutic Dilantin level on presentation History of CVA with right side hemiplegia due to encephalomalacia Review of Systems Review of Systems: Mild distress and fatigue no headache, no visual changes no speech or swallowing issues no chest pain, pressure or palpitations no shortness of breath, cough or wheezes no abdominal pain, nausea or vomiting, diarrhea or constipation no dysuria, hematuria or frequency no focal joint pain or swelling no back pain, CVA tenderness or radicular pain no bruising, bleeding or rashes Focal right-sided weakness with contracture of the hand no complaints of anxiety or depression.. Physical Exam Physical Exam: The patient appeared well nourished and normally developed. Vital signs as documented. Head exam is normocephalic atraumatic Neck is without JVD, thyromegaly, or carotid bruits. Lungs are clear to auscultation, no focal loss of breath sounds Cardiac exam, Rhythm is regular.. No murmurs, rubs or gallops. Abdominal exam reveals normal bowel sounds, soft non tender, no masses Extremities are nonedematous and both pedal pulses are present Neurologic exam is alert and oriented,right sided weakness and hand contracture Skin is without bruises or rashes Psychologically is without concerns for anxiety or depression Results & Data Results & Data ([facility]) Vital Signs (Past 12 Hours) Vital Signs Temp Pulse Pulse Pulse Resp BP BP 06/04/21 07:00 98.1 F 82 16 118/77 06/04/21 05:57 59 L 06/04/21 03:47 98.2 F 65 18 100/63 06/04/21 01:23 98.2 F 57 L 18 142/90 H 06/03/21 21:42 98.2 F 58 L 16 06/03/21 20:39 98.2 F 58 L 16 06/03/21 20:30 79 15 06/03/21 20:00 65 18 130/88 BP Pulse Ox 06/04/21 07:00 98 06/04/21 05:57 06/04/21 03:47 99 06/04/21 01:23 97 06/03/21 21:42 133/94 98 06/03/21 20:39 130/88 98 06/03/21 20:30 06/03/21 20:00 98 PG Care Time/CCT Total # of Minutes Spent Total Time Spent with Patient: Total time spent is greater than 50% in coordination of care (as documented) at patient's floor/unit and/or counseling patient: Coding Diagnoses Symptoms of cerebrovascular accident (CVA) R09.89 Hypertension I10 Dyslipidemia E78.5 History of rheumatic fever as a child Z86.79 Mitral regurgitation I34.0 Seizure disorder G40.909 Asthma J45.909 Depression F32.9 Hyponatremia E87.1
[2021-06-04 07:55] LABS: Basophils # (auto) 0.06 K/uL (0-0.2); Basophils % (auto) 1.1 %; Eosinophils # (auto) 0.33 K/uL (0-0.5); Eosinophils % (auto) 6.3 %; Hematocrit (blood only) 38.9 % (42-52); Hemoglobin 13.3 g/dL (14.0-18.0); Immature Granulocytes # (auto) 0.01 K/uL (0.00-0.02); Immature Granulocytes % (auto) 0.2 %; Lymphocytes # (auto) 0.69 K/uL (1.2-3.4); Lymphocytes % (auto) 13.1 %; Mean Corpuscular Hemoglobin 31.7 pg (25-34); Mean Corpuscular Hgb Conc 34.2 g/dL (32-36); Mean Corpuscular Volume 92.6 fL (80-100); Mean Platelet Volume 9.1 fL (7.4-10.4); Monocytes # (auto) 0.46 K/uL (0.11-0.59); Monocytes % (auto) 8.7 %; Neutrophils # (auto) 3.72 K/uL (1.4-6.5); Neutrophils % (auto) 70.6 %; Platelet Count 183 K/uL (130-400); RDW Coefficient of Variation 13.8 % (11.5-14.5); RDW Standard Deviation 47.2 fL (36.4-46.3); White Blood Count 5.27 K/uL (4.8-10.8)
--- NOTE | 2021-06-04 08:16 | Neurology Consultation ---
Date of Consultation June 04, 2021 Assessment & Plan (1) Hemiparesis affecting dominant side as late effect of cerebrovascular accident: (2) Aphasia as late effect of cerebrovascular accident: (3) Seizure disorder: (4) Hypertension: (5) Depression: this patient has a history of large left middle cerebral artery stroke sometime in the last 10-15 years (not in the last 5 years) resulting in significant spastic right martha paresis and spastic gait as well as probable aphasia. He has a seizure disorder as a result of the stroke, well controlled on Dilantin with no seizures for at least 1 year. His level is mildly low at 7.6 (normal 10-20) He does have a history of hypertension which is fairly well controlled as well as significant depression and other psychiatric issues controlled on fluoxetine and risperidone. He does not have obvious Parkinson's features on examination a s a side effect from the risperidone. The etiology of his acute symptoms yesterday are likely related to a temporary exacerbation of his old stroke symptoms creating some additional right-sided weakness. Again this is bringing out the old symptoms as opposed to creating brain new symptoms. This has improved considerably an MRI of the brain has showed no acute stroke. Hypertension can create temporary neurologic dysfunction and somewhat of previous stroke. CT angiography showed no abnormalities as well. There is no history that the patient has had a seizure, however, if he had a small seizure in the middle of the night that could leave it with some extra weakness for a day or so. The patient has some cardiac mitral valve issues followed by Cardiology, which are stable. Recommendations: 1. I see no need for additional neurologic testing at this time. 2. Since he is on a complicated regimen for phenytoin, his level was slightly low, and he may ( not certain at all) have had a seizure in the middle of the night creating some post ictal weakness temporarily, we could increase his phenytoin to 300 mg every day and check a trough level in 2 weeks. 3. given his history of stroke and hypertension I would initiate 81 mg aspirin tablet daily to help prevent small vessel ischemia. 4. There is no evidence of embolic phenomenon and therefore no need for an anticoagulant 5. increase activity as able. Consider physical, occupational, and speech therapy at [facility] Overall, I spent a total of 75 minutes with this case including review of records, review of CT and MRI films, direct evaluation the patient bedside, and discussion of the case with the patient and guards at bedside, SONYA at bedside, [facility] medical team via telephone, and Dr. Douglas, including differential diagnosis and treatment options. History of Present Illness Reason for Consultation: David is a 55 year old, who I was asked to see at the request of Dr. Lau, for neurologic consultation regarding weakness and history of stroke Requesting Physician: Dr. Lau Attending Physician: Rafael Douglas MD History of Present Illness Patient's history is somewhat difficult to piece together. I did speak to Arthur Alan PA-C, from the [facility] regarding the patient's past history. The patient has been an inmate at [facility] for about 21 years, and he originally is from [place]. He predominately speaks [place] but does know some ankles. He had a significant /large left middle cerebral artery territory stroke sometime in the past. I have records from 2004 suggesting that he did not have a stroke at that time, but he must of had the stroke sometime after that. Our [facility] chart does not have any history of his stroke event. He was left with a significant right martha paresis and typically walked with his right upper extremity flexed and his right lower extremity circumduct in with a limp. His speech was not overtly slurred but he does have a history of intellectual disability. The patient's emergency room visit note from 2004 does not suggest any intellectual issues and could communicate fairly well with the emergency room doctor. currently he is on no antiplatelet or anti coagulation. He has a history of cardiac disease and is followed by Dr. Heart. He has a diagnosis of Hypertension, mitral regurgitation, left ventricular hypertrophy, myxomatous mitral valve, and mitral valve prolapse. He is on losartan 50 mg a day. He also has a history of dyslipidemia. He is on atorvastatin 20 mg a day. He also has a history of asthma. The patient has a history of psychiatric issues and is followed closely by Psychiatry. he is on risperidone 2 mg in the morning and 6 mg at night. He also takes fluoxetine 10. In addition, he developed a seizure disorder sometime after his stroke, but I have no details regarding this either. He has had no seizures in at least 1 year (According to EITAN Alan) and is on phenytoin 200 mg every Monday, Monday, Monday, Monday and 300 mg every Monday, , and Monday. Apparently the patient was in his usual state of health. He awoke in the share holder hours of June 03 feeling weaker on the right side and having numbness. Apparently the medical staff at [facility] saw a right facial droop, felt his blood pressure was higher than usual at 138/90, and his right side was weaker, not being able to stand or ambulate as well. He arrived to the emergency room June 03 at 3:23 p.m., with a temperature 36.5, blood pressure 120/82, pulse 71 and regular, respiratory rate 18, O2 saturation 97%. NIH stroke scale score was 8 based on the right-sided findings. Chem profile was unremarkable except for sodium 131. CBC showed slight anemia. Chest x-ray was unremarkable. CT scan of the head showed an old large left middle cerebral artery territory area of encephalomalacia old stroke. CT angiography of the head and neck were unremarkable. MRI of the brain showed the old left middle cerebral artery territory stroke with no other acute changes and no significant old small vessel ischemic disease. Dilantin level was 7.6. Nursing reports no seizures or abnormal events overnight. He has been in normal sinus rhythm as well. Chemistry profile today was unremarkable and sodium was 135. triglycerides were 48 and total cholesterol 164. Hemoglobin A1c is pending. The patient is very difficult to communicate with but does not appear to be in pain. Allergies Allergy/AdvReac Type Severity Reaction Status Date / Time No Known Allergies Allergy Unknown Verified 06/03/21 18:11 Home Medications Medication Instructions Recorded Confirmed Type atorvastatin 20 mg tablet 20 mg PO DAILY 04/02/20 06/03/21 History fluoxetine 10 mg capsule 10 mg PO DAILY 04/02/20 06/03/21 History levalbuterol tartrate 45 2 inh INHALATION Q6H PRN 04/02/20 06/03/21 History mcg/actuation aerosol inhaler (Xopenex HFA) losartan 50 mg tablet (Cozaar) 50 mg PO DAILY 05/13/21 06/03/21 History phenytoin sodium extended 100 mg 200 mg PO 4XWK cap 05/13/21 06/03/21 History capsule phenytoin sodium extended 300 mg 300 mg PO 3XWK cap 05/13/21 06/03/21 History capsule risperidone 2 mg tablet 2 mg PO HS tab 05/13/21 06/03/21 History ciclesonide 160 mcg/actuation 2 puff INHALATION Q12H 06/03/21 06/03/21 History aerosol inhaler (Alvesco) risperidone 3 mg tablet 6 mg PO HS 06/03/21 06/03/21 History Patient History Medical History (Updated 06/04/21 @ 08:56 by Marvin Sadler MD) Aphasia as late effect of cerebrovascular accident Asthma CVA (cerebral vascular accident) Depression Dyslipidemia Heart murmur Hemiparesis affecting dominant side as late effect of cerebrovascular accident Intellectual disability Left ventricular hypertrophy Mitral regurgitation Psychosis Rheumatic fever Seizure disorder Family History Father Heart disease Mother Heart disease Social History Smoking Status: Never smoker Hx Alcohol Use: No Hx Substance Use: No Preferred Language: Skate Hop Required: Yes Beliefs That Will Affect Care: None Current Living Situation: Other Current Living Situation Comment: Skilled Nursing Other Information That Helps Us Care for You: No Feels Safe at Home: Yes Assistive Devices: None Review of Systems Review of Systems: Other ( Review of systems was quite difficult to obtain because of the patient's language barrier and intellectual issues including what I believe is some motor aphasia.) He does not seem to be in pain but does complain of weakness in the right arm and leg. Exam (Neuro) Physical Exam: The patient is awake, alert, and attentive. Speech is Remarkable for some mild dysarthria and probable mild expressive aphasia. I wonder about some receptive aphasia (and that could be what is mistaken for intellectual disability). I would be better assessing this if I had someone present who spoke [place] fluently. Patient's mood was unremarkable and his affect was appropriate. I could not assess cognitive skills but he did not know his age. He knew that he was at [facility] for 20 years (which was fairly accurate). He knew the was in the hospital but did not know the name of the hospital and was not oriented to month or year. Pupils are 4 mm bilaterally and reactive to light. Extraocular eye muscles are intact without nystagmus. Visual acuity and visual field examination was difficult to be certain but he seemed to see in all directions. There are no deficits to sensation in the face in all 3 distributions of the fifth cranial nerve bilaterally. Corneal reflexes are positive bilaterally. although I did not notice an obvious facial droop on the right there was some asymmetry. He did move the right side voluntarily with smile. Hearing seems normal bilaterally. Palate moves well without asymmetry. There is normal sternocleidomastoid and trapezius (shoulder shrug) strength bilaterally. Tongue is midline with good strength bilaterally. Neck has a full range of motion without discomfort. There are no cervical bruits bilaterally. There are no cranial or ocular bruits. Heart is without murmur. There is a regular rhythm and rate. Cervical, thoracic, and lumbar spine are nontender to palpation. Gait and stance were not tested. With outstretched arms there is no drift On the left. There are no resting, postural, or action tremors. There is no ataxia with finger to nose testing on the left. There is good facility in the left hand. No other abnormal involuntary movements are noted. the right upper extremity was weak and spastic. There was marked decreased facility and weakness in the right hand. Motor strength is 5/5 diffusely in the Left arm and leg both proximally and distally diffusely. The right upper extremity had 4/5 strength diffusely with contracture and spasticity. The right lower extremity strength was 4/5 and had some extension spasticity. The limbs have good tone without rigidity or spasticity On the left. the right arm and leg had increased tone. Sensory examination is intact to touch and pin throughout all 4 limbs diffusely. I could not detect an obvious sensory deficit. Reflexes are 2/4 in the biceps, triceps, and brachioradialis Tendons on the rig ht. Reflexes were 1/4 in those reflexes on the left and quadriceps tendons bilaterally will 1/4. Achilles tendon reflexes were absent bilaterally. There is no clonus bilaterally. Toes are downgoing with plantar stimulation On the left and upgoing with plantar stimulation on the right. Peripheral pulses are present and of normal quality distally in all 4 limbs. There is no peripheral edema noted in the limbs. Results & Data ([facility]) Vital Signs (Past 12 Hours) Vital Signs Temp Pulse Pulse Pulse Resp BP BP 06/04/21 07:00 36.7 C 82 16 118/77 06/04/21 05:57 59 L 06/04/21 03:47 36.8 C 65 18 100/63 06/04/21 01:23 36.8 C 57 L 18 142/90 H 06/03/21 21:42 36.8 C 58 L 16 133/94 06/03/21 20:39 36.8 C 58 L 16 130/88 06/03/21 20:30 79 15 Pulse Ox 06/04/21 07:00 98 06/04/21 05:57 06/04/21 03:47 99 06/04/21 01:23 97 06/03/21 21:42 98 06/03/21 20:39 98 06/03/21 20:30 PG Care Time/CCT Total # of Minutes Spent Total Time Spent with Patient: Total time spent is greater than 50% in coordination of care (as documented) at patient's floor/unit and/or counseling patient: Coding Level of Care Code 27326 Office/OBS Consult Lvl 5 Diagnoses Hemiparesis affecting dominant side as late effect of cerebrovascular accident I69.359 Aphasia as late effect of cerebrovascular accident I69.320 Seizure disorder G40.909 Hypertension I10 Depression F32.9 Time Spent (min) 75
[2021-06-04 08:27] LABS: Alanine Aminotransferase 30 U/L (12-78); Albumin Level 3.5 gm/dl (3.4-5.0); Aspartate Aminotransferase 20 U/L (15-37); BUN Creatinine Ratio 11.9 (10-20); Blood Urea Nitrogen 9 mg/dl (7-18); Calcium 8.9 mg/dl (8.5-10.1); Carbon Dioxide 26 mmol/L (21-32); Chloride 103 mmol/L (98-107); Cholesterol 164 mg/dl (0-200); Creatinine Clr Calc Pharmacy 77.2 ml/min; Est GFR (African American) 118.9 ml/min; Est GFR (Non-African American) 102.5 ml/min; Glucose 90 mg/dl (70-99); Magnesium 2.5 mg/dl (1.8-2.4); Potassium 4.1 mmol/L (3.5-5.1); Sodium 135 mmol/L (136-145); Triglycerides 48 mg/dl (0-150); VLDL Cholesterol 10 mg/dl
[2021-06-04 08:29] LABS: Albumin Globulin Ratio 1.1 (0.9-2); Alkaline Phosphatase 108 U/L (45-117); Bilirubin,Total 0.2 mg/dl (0.2-1); Chol HDL Ratio 2; Globulin 3.2 gm/dl (2.5-4.0); HDL Cholesterol 105 mg/dl; LDL Cholesterol Calculated 49 mg/dl; Phosphorus 4.2 mg/dl (2.5-4.9); Total Protein 6.7 gm/dl (6.4-8.2); Troponin I < 0.015 ng/ml (0-0.045)
[2021-06-04] MEDS ORDERED: PHENYTOIN SODIUM ER 100 MG CAP PO SCH (09:00)
[2021-06-04] MEDS ORDERED: ENOXAPARIN INJ 40 MG/0.4 ML SYR SQ SCH (09:00)
[2021-06-04] MEDS ORDERED: ASPIRIN 81 MG ECTAB PO SCH (09:00)
[2021-06-04] MEDS ORDERED: FLUTICASONE FUROATE 200MCG 14 PUFFS/INHALER INH SCH (09:00)
[2021-06-04] MEDS ORDERED: FLUoxetine HCL 10 MG CAP PO SCH (09:00)
[2021-06-04] MEDS ORDERED: FOSPHENYTOIN IV SCH (10:15)
[2021-06-04] MEDS ORDERED: SODIUM CHLORIDE IV SCH (10:15)
[2021-06-04 10:39] LABS: Estimated Average Glucose 97 mg/dl
[2021-06-04] MEDS ORDERED: STROKE PATIENT DISCHARGE STA (11:19)
--- NOTE | 2021-06-04 12:46 | Electrocardiogram Report ---
Test Reason : Blood Pressure : / mmHG Vent. Rate : 063 BPM Atrial Rate : 063 BPM P-R Int : 164 ms QRS Dur : 084 ms QT Int : 418 ms P-R-T Axes : 036 047 019 degrees QTc Int : 427 ms Normal sinus rhythm ST elevation, consider early repolarization, pericarditis, or injury Abnormal ECG When compared with ECG of 06-MAR-2005 08:13, Vent. rate has decreased BY 54 BPM Confirmed by Dar Lai ([id number]) on 06/04/2021 12:46:23 PM Referred By: [facility] Confirmed By:Dar Lai
--- NOTE | 2021-06-04 15:17 | Electrocardiogram Report ---
Test Reason : Blood Pressure : / mmHG Vent. Rate : 064 BPM Atrial Rate : 064 BPM P-R Int : 164 ms QRS Dur : 088 ms QT Int : 420 ms P-R-T Axes : 032 044 018 degrees QTc Int : 433 ms Normal sinus rhythm ST elevation, consider early repolarization, pericarditis, or injury Abnormal ECG When compared with ECG of 03-JUN-2021 16:44, (unconfirmed) No significant change was found Confirmed by Dar Lai ([id number]) on 06/04/2021 3:17:09 PM Referred By: [facility] Confirmed By:Dar Lai
--- NOTE | 2021-06-04 15:33 | Discharge Summary ---
Date of Service June 04, 2021 Admission HPI Per Admitting Provider Edgardo Mark is a 55 y/o male w/ PMHx of intellectual disability, HTN, HLD, MVP, myomatous mitral valve, seizure disorder, L CVA (w/ mild residual R sided wkness) and rheumatic fever during childhood who presents from [facility] w/ new right sided numbness and weakness since 299. No numbness. He states it is at his entire right lower extremity and right hand only, sparing right arm and shoulder. Severity of his symptoms have not changed since this morning. Patient denies other new symptomatic complaints. Per the 2 guards at bedside, patient has had some baseline residual R sided weakness but typically is very active and is seen walking frequently. Today, the patient had difficulty walking because of right leg weakness. The guards are unsure about patient's baseline regarding his hand. Covid immunization: J&J Mar 2021. 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 Principal Diagnosis seizure disorder with subtherapeutic levels on presentation encephalomalacia with right sided hemiplegia Discharge Exam The patient appeared chronically ill Vital signs as documented. Lungs are clear to auscultation and appear unlabored Cardiac exam, Rhythm is regular.. No murmurs, rubs or gallops. Abdominal exam reveals normal bowel sounds, soft non tender, no masses Extremities right hemiplegia Neurologic exam is alert and oriented x2, Skin is without bruises or rashes Psychologically is without concerns for anxiety or depression. Discharge Data Allergies Allergy/AdvReac Type Severity Reaction Status Date / Time No Known Allergies Allergy Unknown Verified 06/03/21 18:11 Consultations 06/03/21 17:56 ED Decision to Admit Stat 06/04/21 00:21 Consult Neurology Routine Ordered Studies 06/03/21 16:00 CT head/brain wo con Stat 06/03/21 16:09 CT angio head w con Stat CT angio neck with con Stat 06/03/21 18:13 MR brain wo con Urgent Hospital Course (1) Symptoms of cerebrovascular accident (CVA): 55 year old male w/ PMHx of CVA, seizure disorder, and intellectual disability who presents w/ new right sided weakness and altered sensation and is outside tPA treatment window. It is uncertain how much of patient's current symptoms are new vs his baseline. encephalopathy likely from seizure with low phenytoin on presentation, no new changes on imaging or angiography to support cva or tia - CTA head/neck reviewed, "Left MCA territory encephalomalacia is consistent with a remote insult" -MRI brain with no acute changes. chronic cystic encephalomalacia - Angiography of head and neck without acute concerns - since no concern for stroke and with possible seizure here, will not increase the statin, but will add daily aspirin - consider thumb spica wrist brace if right hand contracture does not improve (2) Hyponatremia: maybe siadh or medication influenced, pt is with euvolemia hyponatremia, recommend follow up communicated to [facility] (3) Hypertension: resume home antihypertensives (4) Dyslipidemia: - continue statin at pre hospital dose (5) History of rheumatic fever as a child: 05/13/21 outpatient echo w/o mention of vegetation or shunt - defer repeat echo as brain MRI suggestive of embolic stroke (6) Mitral regurgitation: moderate to severe MR, follows Dr. Heart last echo 05/13/21 Normal systolic function. Myxomatous mitral valve w/ mild prolapse. Mild-mod TR. (7) Seizure disorder: - per patient in remission x 20 years - phenytoin level is low on presentation, augment with fosphenytoin and follow level as will be on increased home doses to 300mg (8) Asthma: - hold home PRN Xopenex. continue home Alvesco (9) Depression: - fluoxetine and Risperdal full code Total Time Total Time Spent Total Time Spent (In Minutes): It required greater than 30 minutes to prepare this patient for discharge Discharge Plan Discharge Items [facility]position[facility] Reason For Visit: CVA SYMPTOMS Discharge Diagnosis: tia seizure disorder with low Dilantin level hyponatremia Activity: Resume your previous activity Non-emergency contact: Primary Care Provider Call non-emergency contact if: you have any medication questions and your symptoms worsen Follow-up/Referrals: Zachary HENDRICKSON [Primary Care Provider] - Diet: Regular Addtl Attending Provider Instructions: please start aspirin and continue daily Increase Dilantin to 300mg once a day but keep a close eye on the Dilantin level the patients sodium was slightly low, it came up on 06/04 labs, but please recheck next week if low may need enforced fluid restriction consider OT eval for hand contracture Pending Studies at Discharge: Yes Skilled Items Patient informed of condition?: Yes DNR: No Discharge Level of Care: Other Communicable Disease: No Discharge Prognosis: Stable Lines: None Urinary Catheter: No Medications and DC Order Prescriptions: Continued atorvastatin 20 mg tablet 20 mg PO DAILY RF: 0 levalbuterol tartrate [Xopenex HFA] 45 mcg/actuation HFA aerosol inhaler 2 inh inhalation Q6H PRN (Reason: Shortness Of Breath) RF: 0 fluoxetine 10 mg capsule 10 mg PO DAILY RF: 0 risperidone 2 mg tablet 2 mg PO HS RF: 0 Alvesco 160 mcg/actuation Hfa Aerosol Inhaler 2 puff INHALATION Q12H RF: 0 risperidone 3 mg Tablet 6 mg PO HS RF: 0 Changed phenytoin sodium extended 300 mg capsule 300 mg PO DAILY Qty: 0 RF: 0 Discontinued phenytoin sodium extended 100 mg capsule 200 mg PO 4XWK RF: 0 losartan [Cozaar] 50 mg tablet 50 mg PO DAILY RF: 0 Admission Data Admit Date/Time: 06/03/21 20:22 Attending Provider: Rafael Douglas Admit Provider: Brian Lau Primary Care Provider: Zachary HENDRICKSON Other Providers: Robbin Rubio ; Marvin Sadler Other Interventions: Discharge Summary Assessment (RN) Last Done: 06/04/21 13:13 Coding Level of Care Code D/C DAY MANAGEMENT >30 MINS Diagnoses Symptoms of cerebrovascular accident (CVA) R09.89 Hyponatremia E87.1 Hypertension I10 Dyslipidemia E78.5 History of rheumatic fever as a child Z86.79 Mitral regurgitation I34.0 Seizure disorder G40.909 Asthma J45.909 Depression F32.9
--- NOTE | 2021-06-05 04:58 | Billing Data ---
Date of Service June 05, 2021 Coding Level of Care Code INT OBSERVATION CARE 70M LVL 3
[2021-06-05] MEDS ORDERED: PHENYTOIN SODIUM ER 100 MG CAP PO SCH (09:00)
== END 2021-06-04 15:19 ==
LOC: ED 15:16 → 2W 15:16 → SUATTDRO 20:22 → 2W 06-04 00:01

== ENCOUNTER 2022-04-06 19:23 | Observation (INO) ==
[2022-04-06 20:00] LABS: Basophils # (auto) 0.06 K/uL (0-0.2); Basophils % (auto) 0.8 %; Eosinophils # (auto) 0.05 K/uL (0-0.50); Eosinophils % (auto) 0.6 %; Hematocrit (blood only) 37.4 % (40.1-51.0); Hemoglobin 13.4 g/dl (14.0-18.0); Immature Granulocytes # (auto) 0.03 K/uL (0.00-0.02); Immature Granulocytes % (auto) 0.4 %; Lymphocytes # (auto) 0.69 K/uL (1.2-3.4); Lymphocytes % (auto) 8.7 %; Mean Corpuscular Hemoglobin 32.4 pg (25.0-34.0); Mean Corpuscular Hgb Conc 35.8 g/dL (32.0-36.0); Mean Corpuscular Volume 90.3 fL (80.0-100.0); Mean Platelet Volume 8.8 fL (9.4-12.4); Monocytes # (auto) 0.95 K/uL (0.24-0.82); Neutrophils # (auto) 6.15 K/uL (1.4-6.5); Neutrophils % (auto) 77.5 %; Platelet Count 192 K/uL (130-400); RDW Coefficient of Variation 12.9 % (11.5-14.5); RDW Standard Deviation 42.8 fL (36.4-46.3); Red Blood Count 4.14 M/uL (4.63-6.08); White Blood Count 7.93 K/ul (4.8-10.8)
[2022-04-06 20:17] LABS: D Dimer 290 ug/L FEU (0-500); Prothrombin Time 11.1 Seconds (9.0-12.0)
--- NOTE | 2022-04-06 20:23 | Emergency Department Note ---
Impression & Plan Retrosternal chest pain, Tachycardia ED Provider Note INFORMANT: Patient ED PROVIDER(S): Fran Aguilar MD CHIEF COMPLAINT: Chest pain PLAN: Disposition: Admitted Condition: Good Outpatient prescription management: none Referral: None MEDICAL DECISION MAKING: Patient presented to the emergency department with chest pain. He did get relief with nitro prehospital. He did receive aspirin as well. Patient's ECG showed a tachycardia and prolonged QT but no evidence of ischemia. His chest x- ray was rather unremarkable. His CBC and chemistry panel were negative. The patient's troponin and D-dimer are negative as well. Given his history, symptoms, and relief with nitroglycerin further management in the hospital was felt to be appropriate. Consultation was made with Dr. Sedrick Campbell of the [facility] service. Patient was evaluated in the ER for further ma nagement. Triage Nursing notes reviewed and agree them. Vital Signs: reviewed and remarkable for tachycardia Differential diagnosis: Cardiac ischemia, aortic dissection, pulmonary embolism, pneumothorax, pneumonia, pericarditis, myocarditis, esophageal rupture, GERD, cholecystitis, pancreatitis, musculoskeletal, as well as other pathologies. Diagnostics interpreted by me: ECG: Twelve-lead ECG reveals sinus tachycardia 104 bpm. Prolonged QT interval. No ST elevation or depression. No PVCs or PACs Cardiac Monitoring: Cardiac monitoring ordered by me: The patient was placed on continuous cardiac monitoring and observed. It revealed a sinus tachycardic rhythm at 112 beats per minute without ectopy or evidence of dysrhythmia. Imaging studies: Chest x-ray. Findings: A chest x-ray was performed and revealed no pneumothorax, effusion, infiltrate, pulmonary edema, free air under the diaphragm, or wide mediastinum. Impression: No acute disease. HPI: The patient is a 56year old [place]uran-speaking prisoner who presents to the Emergency Room with complaints of retrosternal chest pain. This started this evening and is currently resolved. The patient also notes the following associated symptoms, some shortness of breath. The patient has been given aspirin and nitroglycerin prehospital successfully for relieving factors. Current pain is rated as 0/10. Patient is reportedly residing in the [facility]. He is bedbound per the correctional officers with him. History of CVA. Pt denies LOC, headache, fevers, chills, diaphoresis, visual changes, neck pain, nausea, vomiting, abdominal pain, back pain, melena, hematochezia, urinary symptoms, numbness, weakness, lymphadenopathy, rash, or other complaints. ROS: See above HPI for pertinent positives & negatives. A total of 10 systems reviewed and were otherwise negative. PAST MEDICAL HISTORY:See Below , CVA PAST SURGICAL HISTORY:See Below, FAMILY HISTORY:See Below SOCIAL HISTORY:See Below, incarcerated HOME MEDICATIONS:See Below ALLERGIES:See Below VITALS:See Below PHYSICAL EXAMINATION: GENERAL: Awake, alert, nontoxic-appearing, in no distress HENT: Normocephalic, atraumatic. Oropharynx unremarkable. EYES: Normal conjunctiva. Sclera non-icteric. NECK: Inspection normal. Non-tender. Supple. No nuchal rigidity. FROM. No masses. RESPIRATORY: Clear to auscultation. No wheezes. No rales. Normal respiratory effort. CARDIAC: Borderline tachycardic rate. Normal rhythm. No murmurs. No rubs. Extremities warm and well perfused. Pulses equal. No JVD. GI: Soft, non-distended. No tenderness to palpation. No rebound or guarding. No masses. RECTAL: Deferred. MUSCULOSKELETAL: Atraumatic. Chest examination reveals no tenderness. The back is symmetrical on inspection without obvious abnormality. There is no CVA tenderness to palpation. No joint edema. LOWER EXTREMITIES: Calves are equal size bilaterally and non-tender. No edema. No discoloration. NEURO: Normal sensorium. No sensory deficits noted. Contracture noted in the right upper extremity weakness in the lower extremities. SKIN: No rash or jaundice noted. Fran Aguilar MD Past Med/Surg History Medical History (Updated 04/06/22 @ 20:23 by Fran Aguilar MD) Aphasia as late effect of cerebrovascular accident Asthma CVA (cerebral vascular accident) Depression Dyslipidemia Heart murmur Hemiparesis affecting dominant side as late effect of cerebrovascular accident Intellectual disability Left ventricular hypertrophy Mitral regurgitation Psychosis Rheumatic fever Seizure disorder Family History Father Heart disease Mother Heart disease Social History Smoking Status: Never smoker Hx Alcohol Use: No Hx Substance Use: No Preferred Language: Custom Shoemaker Required: Yes Beliefs That Will Affect Care: None Current Living Situation: Other Current Living Situation Comment: Long Term Feels Safe at Home: Yes Assistive Devices: None Allergies Allergies Allergy/AdvReac Type Severity Reaction Status Date / Time No Known Allergies Allergy Unknown Verified 07/10/21 18:33 Home Meds Home Medications Medication Instructions Recorded Confirmed atorvastatin 20 mg tablet 20 mg PO HS 04/02/20 07/10/21 fluoxetine 10 mg capsule 10 mg PO QAM 04/02/20 07/10/21 levalbuterol tartrate 45 2 inh inhalation Q6H PRN Shortness 04/02/20 07/10/21 mcg/actuation aerosol inhaler Of Breath (Xopenex HFA) risperidone 2 mg tablet 2 mg PO HS 05/13/21 07/10/21 ciclesonide 160 mcg/actuation 2 puff inhalation Q12H 06/03/21 07/10/21 aerosol inhaler (Alvesco) risperidone 3 mg tablet 6 mg PO HS 06/03/21 07/10/21 aspirin 81 mg tablet,delayed 81 mg PO QAM 07/10/21 07/10/21 release losartan 50 mg tablet 50 mg PO QAM 07/10/21 07/10/21 phenytoin sodium extended 100 mg 200 mg PO 4XWK 07/10/21 07/10/21 capsule phenytoin sodium extended 100 mg 300 mg PO QAM 07/10/21 07/10/21 capsule Results & Data (ED) Vital Signs Vital Signs - 24 hr 04/06/22 19:43 04/06/22 19:54 04/06/22 20:20 Temperature 37.0 C Temperature Source Oral Pulse Rate 114 H Pulse Rate [Apical] 103 H Respiratory Rate 18 18 Blood Pressure 117/68 Blood Pressure [Left Arm] 127/71 Blood Pressure Mean 84 Blood Pressure Mean [Left Arm] 89 Blood Pressure Position Sitting Pulse Oximetry 98 98 98 Oxygen Delivery Method Room Air Room Air Room Air Sepsis Recent Fever Within 48 Hours No Sepsis New/Unexplained Change in Mental Status N/A Sepsis Action Taken by Nursing No Action Required Laboratory Data Result diagrams: 04/06/22 19:48 04/06/22 19:48 Lab Results 04/06/22 04/06/22 04/06/22 Range/Units 19:48 19:48 19:48 WBC 7.93 (4.8-10.8) K/ul RBC 4.14 L (4.63-6.08) M/uL Hgb 13.4 L (14.0-18.0) g/dl Hct 37.4 L (40.1-51.0) % MCV 90.3 (80.0-100.0) fL MCH 32.4 (25.0-34.0) pg MCHC 35.8 (32.0-36.0) g/dL RDW Std Deviation 42.8 (36.4-46.3) fL RDW Coeff of Pamela 12.9 (11.5-14.5) % Plt Count 192 (130-400) K/uL MPV 8.8 L (9.4-12.4) fL Immature Gran % (Auto) 0.4 % Neut % (Auto) 77.5 % Lymph % (Auto) 8.7 % Fallon % (Auto) 12.0 % Eos % (Auto) 0.6 % Baso % (Auto) 0.8 % Neut # (Auto) 6.15 (1.4-6.5) K/uL Lymph # (Auto) 0.69 L (1.2-3.4) K/uL Fallon # (Auto) 0.95 H (0.24-0.82) K/uL Eos # (Auto) 0.05 (0-0.50) K/uL Baso # (Auto) 0.06 (0-0.2) K/uL Immature Gran # (Auto) 0.03 H (0.00-0.02) K/uL PT 11.1 (9.0-12.0) Seconds INR 1.0 (0.9-1.1) D-Dimer 290 (0-500) ug/L FEU Sodium 129 L (136-145) mmol/L Potassium 3.3 L (3.5-5.1) mmol/L Chloride 99 (98-107) mmol/L Carbon Dioxide 20 L (21-32) mmol/L Anion Gap 10 (3-11) BUN 8 (6-23) mg/dl Creatinine 0.71 (0.6-1.4) mg/dl Est Cr Clr Drug Dosing Not Reportable Est GFR ( Amer) 120.7 ml/min Est GFR (Non-Af Amer) 104.2 ml/min BUN/Creatinine Ratio 11.3 (10-20) Glucose 84 (70-99(Fasting)) mg/dl Calcium 8.9 (8.5-10.1) mg/dl Total Bilirubin 0.4 (0.2-1.0) mg/dl AST 23 (13-39) U/L ALT 27 (7-52) U/L Alkaline Phosphatase 108 H (34-104) U/L Troponin I High Sens 4.7 (0-20) pg/ml Total Protein 7.0 (6.0-8.3) gm/dl Albumin 4.2 (3.4-5.0) gm/dl Globulin 2.8 (2.5-4.0) gm/dl Albumin/Globulin Ratio 1.5 (0.9-2) Lipase 93 H (11-82) U/L Urine Color Urine Appearance (Clear) Urine pH (4.5-7.5) Ur Specific [place] (1.000-1.030) Urine Protein (Negative) Urine Glucose (UA) (Negative) Urine Ketones (Negative) Urine Blood (Negative) Urine Nitrite (Negative) Urine Bilirubin (Negative) Urine Urobilinogen (Negative) Ur Leukocyte Esterase (Negative) SARS-CoV-2, RNA, NAAT (NEGATIVE) 04/06/22 04/06/22 Range/Units 20:09 20:40 WBC (4.8-10.8) K/ul RBC (4.63-6.08) M/uL Hgb (14.0-18.0) g/dl Hct (40.1-51.0) % MCV (80.0-100.0) fL MCH (25.0-34.0) pg MCHC (32.0-36.0) g/dL RDW Std Deviation (36.4-46.3) fL RDW Coeff of Pamela (11.5-14.5) % Plt Count (130-400) K/uL MPV (9.4-12.4) fL Immature Gran % (Auto) % Neut % (Auto) % Lymph % (Auto) % Fallon % (Auto) % Eos % (Auto) % Baso % (Auto) % Neut # (Auto) (1.4-6.5) K/uL Lymph # (Auto) (1.2-3.4) K/uL Fallon # (Auto) (0.24-0.82) K/uL Eos # (Auto) (0-0.50) K/uL Baso # (Auto) (0-0.2) K/uL Immature Gran # (Auto) (0.00-0.02) K/uL PT (9.0-12.0) Seconds INR (0.9-1.1) D-Dimer (0-500) ug/L FEU Sodium (136-145) mmol/L Potassium (3.5-5.1) mmol/L Chloride (98-107) mmol/L Carbon Dioxide (21-32) mmol/L Anion Gap (3-11) BUN (6-23) mg/dl Creatinine (0.6-1.4) mg/dl Est Cr Clr Drug Dosing Est GFR ( Amer) ml/min Est GFR (Non-Af Amer) ml/min BUN/Creatinine Ratio (10-20) Glucose (70-99(Fasting)) mg/dl Calcium (8.5-10.1) mg/dl Total Bilirubin (0.2-1.0) mg/dl AST (13-39) U/L ALT (7-52) U/L Alkaline Phosphatase (34-104) U/L Troponin I High Sens (0-20) pg/ml Total Protein (6.0-8.3) gm/dl Albumin (3.4-5.0) gm/dl Globulin (2.5-4.0) gm/dl Albumin/Globulin Ratio (0.9-2) Lipase (11-82) U/L Urine Color Yellow Urine Appearance Clear (Clear) Urine pH 6.5 (4.5-7.5) Ur Specific [place] 1.003 (1.000-1.030) Urine Protein Negative (Negative) Urine Glucose (UA) Negative (Negative) Urine Ketones Negative (Negative) Urine Blood Negative (Negative) Urine Nitrite Negative (Negative) Urine Bilirubin Negative (Negative) Urine Urobilinogen Negative (Negative) Ur Leukocyte Esterase Negative (Negative) SARS-CoV-2, RNA, NAAT NEGATIVE (NEGATIVE) Imaging Data Radiologist's Impression: Chest X-Ray 04/06/22 19:31 XR chest 1V portable CLINICAL HISTORY: Atypical chest pain. COMPARISON STUDY: Chest radiograph July 10, 2021. FINDINGS: Lung volumes are normal.. There is possible left basilar retrocardiac opacity. There is no pneumothorax or pleural effusion. Cardiac size is normal. Mediastinal contours are normal. There is no evidence for pulmonary edema. Patient is rotated. Degenerative changes of the left shoulder are incidentally noted. IMPRESSION: Possible left basilar retrocardiac opacity. This is likely artifactual however pneumonia could appear similar. Follow-up PA and lateral chest radiographs could be obtained. ACT 112: Negative or not required by law. Electronically signed by: Bertrand Diaz M.D. 04/06/2022 8:36 PM Discharge Plan Visit Data Chief Complaint: Cardiac Assessment ED Provider: Fran Aguilar Discharge Problem: Retrosternal chest pain, Tachycardia Forms Stand Alone Forms: [facility] Prescriptions Prescriptions: No Action atorvastatin 20 mg tablet 20 mg PO HS levalbuterol tartrate [Xopenex HFA] 45 mcg/actuation HFA aerosol inhaler 2 inh inhalation Q6H PRN (Reason: Shortness Of Breath) fluoxetine 10 mg capsule 10 mg PO QAM risperidone 2 mg tablet 2 mg PO HS Rx Instructions: TAKE ALONG WITH 2-3MG TABLETS = 8MG DAILY AT BEDTIME. Alvesco 160 mcg/actuation Hfa Aerosol Inhaler 2 puff INHALATION Q12H risperidone 3 mg Tablet 6 mg PO HS Rx Instructions: TAKE TWO TABLETS DAILY AT BEDTIME. TAKE ALONG WITH 2MG TABLET = 8MG DAILY AT BEDTIME. losartan 50 mg Tablet 50 mg PO QAM phenytoin sodium extended 100 mg Capsule 200 mg PO 4XWK Rx Instructions: Monday,Monday,Monday and Monday at bedtime phenytoin sodium extended 100 mg Capsule 300 mg PO QAM aspirin [Aspir-81] 81 mg Tablet,Delayed Release (Dr/Ec) 81 mg PO QAM Referrals Referrals: Zachary HENDRICKSON [Primary Care Provider] -
[2022-04-06 20:24] LABS: Alanine Aminotransferase 27 U/L (7-52); Albumin Globulin Ratio 1.5 (0.9-2); Albumin Level 4.2 gm/dl (3.4-5.0); Alkaline Phosphatase 108 U/L (34-104); Anion Gap 10 (3-11); Aspartate Aminotransferase 23 U/L (13-39); BUN Creatinine Ratio 11.3 (10-20); Bilirubin,Total 0.4 mg/dl (0.2-1.0); Blood Urea Nitrogen 8 mg/dl (6-23); Calcium 8.9 mg/dl (8.5-10.1); Carbon Dioxide 20 mmol/L (21-32); Chloride 99 mmol/L (98-107); Est GFR (African American) 120.7 ml/min; Est GFR (Non-African American) 104.2 ml/min; Globulin 2.8 gm/dl (2.5-4.0); Glucose 84 mg/dl (70-99(Fasting)); Lipase 93 U/L (11-82); Potassium 3.3 mmol/L (3.5-5.1); Sodium 129 mmol/L (136-145)
[2022-04-06 20:27] LABS: Troponin I High Sensitivity 4.7 pg/ml (0-20)
--- NOTE | 2022-04-06 20:37 | XRay Report ---
XR chest 1V portable CLINICAL HISTORY: Atypical chest pain. COMPARISON STUDY: Chest radiograph July 10, 2021. FINDINGS: Lung volumes are normal.. There is possible left basilar retrocardiac opacity. There is no pneumothorax or pleural effusion. Cardiac size is normal. Mediastinal contours are normal. There is n o evidence for pulmonary edema. Patient is rotated. Degenerative changes of the left shoulder are inc identally noted. IMPRESSION: Possible left basilar retrocardiac opacity. This is likely artifactual however pneumonia could appear similar. Follow-up PA and lateral chest radiographs could be obtained. ACT 112: Negative or not required by law. Electronically signed by: Bertrand Diaz M.D. 04/06/2022 8:36 PM
[2022-04-06 20:56] LABS: Appearance Urine Clear (Clear); Bilirubin Urine Negative (Negative); Blood Urine Negative (Negative); Color Urine Yellow; Glucose Urine UA Negative (Negative); Ketones Urine Negative (Negative); Leukocyte Esterase Urine Negative (Negative); Nitrite Urine Negative (Negative); Protein Urine Negative (Negative); Specific Gravity Urine 1.003 (1.000-1.030); Urobilinogen Urine Negative (Negative); pH Urine 6.5 (4.5-7.5)
[2022-04-06] MEDS ORDERED: POTASSIUM CHLORIDE CRTAB 20 MEQ TABCR PO STA (22:46)
--- NOTE | 2022-04-06 22:46 | History & Physical Report ---
Date of Service April 06, 2022 Assessment & Plan (1) Retrosternal chest pain: Plan: 56 yo M with PMH L MCA stroke w/ residual R hemiparesis and aphasia and subsequent seizure disorder, HTN, HLD, intellectual disability, mitral regurgitation presenting with chest pain. Acute chest pain -EKG on admission- no acute ST change or evidence of ischemia/infarction -Troponin HS on admission negative, serial troponin pending -Chest pain resolved prehospital, no further recurrence -Suspect his chest pain may be due to mild angina symptoms vs MSK etiology such as chest wall spasm (reproducible on exam) -No evidence of acute myocardial injury at this time -Continue telemetry monitoring -Trend troponin QT prolongation -EKG on admission with QTc 549 and hypokalemia on admission K 3.3 -Pt does have medication which could cause QT prolongation -Holding risperidone 8 mg nightly -Repleted potassium in ER -Repeat EKG in AM Hyponatremia -Admission Na 129 -Pt does have medication which could cause hyponatremia -Holding losartan -Suspect possible SIADH given his previous CVA and current seizure disorder -Serum osmolality, urine osmolality, urine Na pending -Trend BMP Hypokalemia -Mild hypokalemia K 3.3 on admission -Repleted in ER -Unlikely that this degree of hypokalemia may have primarily induced QT prolongation -Trend BMP Mitral valve regurgitation and prolapse -Previous echocardiogram 04/2021- EF 65-70%, severe MR, myxomatous mitral valve with mild prolapse, unchanged from 04/2020 echocardiogram -Euvolemic on admission, currently no concern for acute fluid overload History of CVA -Continue aspirin, atorvastatin Seizure disorder -Continue phenytoin Depression/psychosis -Continue fluoxetine -Holding risperidone as above FENGI: NPO pending further chest pain rule/out Code status: Full DVT ppx: SCDs Isolation: None Dispo: Medical with telemetry (2) Hyponatremia: (3) Depression: (4) Seizure disorder: (5) Dyslipidemia: (6) Hypertension: (7) Mitral regurgitation: History of Present Illness Chief Complaint: Chest pain Primary Care Provider: [facility] 56 yo M with PMH L MCA stroke w/ residual R hemiparesis and aphasia and subsequent seizure disorder, HTN, HLD, intellectual disability, mitral regurgitation presenting with chest pain. Pt is exclusively Croatian-speaking, history obtained with help of parts interpreter. Pt is inmate at [facility]. States he experienced sudden onset crushing retrosternal chest pain of 2/10 severity with associated mild dyspnea around 4:00 PM today. EMS was called and pt given aspirin and nitroglycerin. Pain resolved en route to ER. Pt denies any further chest pain since initial episode. States he has had this kind of chest pain before in the past. Denies any further acute complaints on full review of systems. On arrival, pt had mild tachycardia to 100s/110s, normotensive, stable respiratory status. EKG demonstrated sinus tachycardia to 104 with prolonged QT 549, no acute ST changes. CXR with L basilar retrocardiac opacity likely artifactual. D-dimer, troponin negative. CBC unremarkable. Mild hyponatremia Na 129, mild hypokalemia 3.3. No interventions performed in ER. Allergies Allergy/AdvReac Type Severity Reaction Status Date / Time No Known Allergies Allergy Unknown Verified 07/10/21 18:33 Home Medications Medication Instructions Recorded Confirmed Type atorvastatin 20 mg tablet 20 mg PO HS 04/02/20 07/10/21 History fluoxetine 10 mg capsule 10 mg PO QAM 04/02/20 07/10/21 History levalbuterol tartrate 45 2 inh inhalation Q6H PRN Shortness 04/02/20 07/10/21 History mcg/actuation aerosol inhaler Of Breath (Xopenex HFA) risperidone 2 mg tablet 2 mg PO HS 05/13/21 07/10/21 History ciclesonide 160 mcg/actuation 2 puff inhalation Q12H 06/03/21 07/10/21 History aerosol inhaler (Alvesco) risperidone 3 mg tablet 6 mg PO HS 06/03/21 07/10/21 History aspirin 81 mg tablet,delayed 81 mg PO QAM 07/10/21 07/10/21 History release phenytoin sodium extended 100 mg 200 mg PO 4XWK 07/10/21 07/10/21 History capsule phenytoin sodium extended 100 mg 300 mg PO QAM 07/10/21 07/10/21 History capsule pantoprazole 40 mg tablet,delayed 40 mg PO QAM #30 tabs 04/07/22 Rx release triamcinolone acetonide 55 mcg 2 spray SHAYLA DAILY #1 device 04/07/22 Rx nasal spray aerosol (Nasacort) Past Med/Surg History Medical History (Updated 04/06/22 @ 20:23 by Fran Aguilar MD) Aphasia as late effect of cerebrovascular accident Asthma CVA (cerebral vascular accident) Depression Dyslipidemia Heart murmur Hemiparesis affecting dominant side as late effect of cerebrovascular accident Intellectual disability Left ventricular hypertrophy Mitral regurgitation Psychosis Rheumatic fever Seizure disorder Family History Father Heart disease Mother Heart disease Social History Smoking Status: Never smoker Hx Alcohol Use: No Hx Substance Use: No Preferred Language: Croatian Communication Tools: 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 Exam limited by intellectual disability. PERRLA, EOMI. Mild R facial droop CV: tachycardic, regular rhythm, 2/6 systolic murmur at apex, normal S1 and S2 Resp: CTAB, unlabored respirations, no crackles or wheezes Abd: soft, nontender, nondistended Extremities: no peripheral edema b/l Neuro: R fist contracture, 2/5 strength of RLE + RUE, 5/5 strength of LUE/LLE, +slurred speech. No sensory deficits MSK: reproducible chest pain to palpation of sternum Results & Data Results & Data ([facility]) Vital Signs (Past 12 Hours) Vital Signs Temp Pulse Pulse Resp BP BP Pulse Ox 04/06/22 21:59 95 H 16 122/81 99 04/06/22 20:20 103 H 18 127/71 98 04/06/22 19:54 98 04/06/22 19:43 37.0 C 114 H 18 117/68 98 O2 Del Method 04/06/22 21:59 Room Air 04/06/22 20:20 Room Air 04/06/22 19:54 Room Air 04/06/22 19:43 Room Air Code Status & VTE Plan VTE Prophylaxis Plan VTE Prophylaxis will be ordered: Yes Supervising Physician Co-Signing Physician Notes Attending addendum: I have physically seen this patient, have supervised the medical residents activities, and agree with the H&P unless as otherwise noted. Assessment and Plan: Chest pain/mitral valve prolapse/mitral gravitation/hypertension/prolonged QT- The patient will be admitted to telemetry for serial cardiac enzymes, serial EKG's, cardiac rhythm monitoring and a 2-D echocardiogram with Dopplers. Hold Risperdone Hyponatremia/hypokalemia- Main reason for admission Add serum osmolality and urine osmolality to assess for SIADH Serial BMP and magnesium level Treat appropriate once results are back Hold losartan Seizure disorder- Continue phenytoin Depression/psychosis- Continue fluoxetine Hold risperidone due to prolonged QT Remaining orders and notations as noted okay
[2022-04-06 22:56] LABS: Anion Gap 8 (3-11); BUN Creatinine Ratio 11.5 (10-20); Blood Urea Nitrogen 9 mg/dl (6-23); Calcium 9.1 mg/dl (8.5-10.1); Carbon Dioxide 23 mmol/L (21-32); Chloride 100 mmol/L (98-107); Est GFR (African American) 116.1 ml/min; Est GFR (Non-African American) 100.2 ml/min; Glucose 86 mg/dl (70-99(Fasting)); Potassium 3.8 mmol/L (3.5-5.1); Sodium 131 mmol/L (136-145)
[2022-04-06 23:03] LABS: Troponin I High Sensitivity 5.8 pg/ml (0-20)
[2022-04-07] MEDS ORDERED: NITROGLYCERIN SL 0.4 MG/TAB TAB SL PRN (01:26)
[2022-04-07] MEDS ORDERED: LEVALBUTEROL TARTRATE 15 GM HFA.AER.AD INH PRN (01:26)
[2022-04-07 05:10] LABS: Hemoglobin 13.5 g/dl (14.0-18.0); Mean Corpuscular Hemoglobin 31.5 pg (25.0-34.0); Mean Corpuscular Hgb Conc 34.6 g/dL (32.0-36.0); Mean Corpuscular Volume 90.9 fL (80.0-100.0); Mean Platelet Volume 8.7 fL (9.4-12.4); Platelet Count 200 K/uL (130-400); RDW Standard Deviation 42.8 fL (36.4-46.3); Red Blood Count 4.29 M/uL (4.63-6.08); White Blood Count 6.18 K/ul (4.8-10.8)
[2022-04-07 05:37] LABS: Troponin I High Sensitivity 4.6 pg/ml (0-20)
[2022-04-07 05:40] LABS: Calcium 9.1 mg/dl (8.5-10.1); Creatinine Clr Calc Pharmacy 70.1 ml/min; Est GFR (African American) 109.5 ml/min; Est GFR (Non-African American) 94.5 ml/min
[2022-04-07] MEDS ORDERED: FLUoxetine HCL 10 MG CAP PO SCH (09:00)
[2022-04-07] MEDS ORDERED: ASPIRIN 81 MG ECTAB PO SCH (09:00)
[2022-04-07] MEDS ORDERED: PHENYTOIN SODIUM ER 100 MG CAP PO SCH (09:00)
[2022-04-07] MEDS ORDERED: FLUTICASONE FUROATE 200MCG 14 PUFFS/INHALER INH SCH (09:00)
[2022-04-07] MEDS ORDERED: ATROPINE SULFATE 0.1 MG/ML 10ML SYR IV ONE (12:04)
[2022-04-07] MEDS ORDERED: METOPROLOL TARTRATE 1 MG/ML VIAL IV ONE (12:05)
[2022-04-07] MEDS ORDERED: DOBUTamine HCL 12.5 MG/ML 20 ML VIAL IV ONE (12:05)
--- NOTE | 2022-04-07 12:41 | Electrocardiogram Report ---
Test Reason : Blood Pressure : / mmHG Vent. Rate : 104 BPM Atrial Rate : 104 BPM P-R Int : 154 ms QRS Dur : 086 ms QT Int : 418 ms P-R-T Axes : 056 077 042 degrees QTc Int : 549 ms Sinus tachycardia Prolonged QT Nonspecific ST abnormality Abnormal ECG When compared with ECG of 03-JUN-2021 16:50, Vent. rate has increased BY 40 BPM QT has lengthened Confirmed by Dar Lai ([id number]) on 04/07/2022 12:40:59 PM Referred By: [facility] Confirmed By:Dar Lai
--- NOTE | 2022-04-07 12:56 | Electrocardiogram Report ---
Test Reason : Blood Pressure : / mmHG Vent. Rate : 085 BPM Atrial Rate : 085 BPM P-R Int : 168 ms QRS Dur : 086 ms QT Int : 364 ms P-R-T Axes : 069 073 054 degrees QTc Int : 433 ms Normal sinus rhythm Normal ECG When compared with ECG of 06-APR-2022 19:36, (unconfirmed) QT has shortened Confirmed by Dar Lai ([id number]) on 04/07/2022 12:56:06 PM Referred By: [facility] Confirmed By:Dar Lai
--- NOTE | 2022-04-07 15:19 | XCELERA ---
[id number] \\[id number]
[2022-04-07] MEDS ORDERED: PANTOprazole 40 MG TAB PO STA (16:04)
[2022-04-07] MEDS ORDERED: TRIAMCINOLONE ACET NASAL SPRAY 10.8ML BTL NAE SCH (16:15)
--- NOTE | 2022-04-07 17:36 | Discharge Summary ---
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 Pt is exclusively Malay-speaking, history obtained with help of hand reamer. Pt is inmate at [facility]. States he experienced sudden onset crushing retrosternal chest pain of 2/10 severity with associated mild dyspnea around 4:00 PM today. EMS was called and pt given aspirin and nitroglycerin. Pain resolved en route to ER. Pt denies any further chest pain since initial episode. States he has had this kind of chest pain before in the past. Denies any further acute complaints on full review of systems. On arrival, pt had mild tachycardia to 100s/110s, normotensive, stable respiratory status. EKG demonstrated sinus tachycardia to 104 with prolonged QT 549, no acute ST changes. CXR with L basilar retrocardiac opacity likely artifactual. D-dimer, troponin negative. CBC unremarkable. Mild hyponatremia Na 129, mild hypokalemia 3.3. No interventions performed in ER. Principal Diagnosis Chest pain - cardiac causes ruled out, negative stress test Discharge Exam gen - thin, NAD mouth - MMM neck - no JVD heart - RRR, s1 s2, no murmur lungs - CTA b/l chest - no reproducible chest wall pain to palpation (at time of discharge) abd - soft NT ND BS+ ext - no edema, pulses 2+ b/l skin - no rash over the chest neuro - right sided hemiparesis Discharge Data Allergies Allergy/AdvReac Type Severity Reaction Status Date / Time No Known Allergies Allergy Unknown Verified 07/10/21 18:33 Procedures Performed Dobutamine stress echocardiogram: * EF 55-60% * left ventricular wall motion is normal at rest * right ventricular systolic pressure is normal * no significant valvular heart disease * maximum heart rate achieved during the stress test was 98% of maximum age- predicted heart rate * NORMAL DOBUTAMINED ECHOCARDIOGRAM WITHOUT EVIDENCE OF INDUCIBLE ISCHEMIA Ordered Studies Chest X-Ray 04/06/22 19:31 XR chest 1V portable CLINICAL HISTORY: Atypical chest pain. COMPARISON STUDY: Chest radiograph July 10, 2021. FINDINGS: Lung volumes are normal.. There is possible left basilar retrocardiac opacity. There is no pneumothorax or pleural effusion. Cardiac size is normal. Mediastinal contours are normal. There is no evidence for pulmonary edema. Patient is rotated. Degenerative changes of the left shoulder are incidentally noted. IMPRESSION: Possible left basilar retrocardiac opacity. This is likely artifactual however pneumonia could appear similar. Follow-up PA and lateral chest radiographs could be obtained. ACT 112: Negative or not required by law. Electronically signed by: Bertrand Diaz M.D. 04/06/2022 8:36 PM Hospital Course (1) Retrosternal chest pain: Patient's chest pain resolved shortly after admission. High sensitivity Troponins x 3 were negative. D-dimer was normal at 290. CXR with possible left retrocardiac infiltrate but he had NO symptoms of pneumonia and NO pulmonary symptoms. O2 sats were 98% in RA at rest at time of discharge. Telemetry was normal while here. He underwent dobutamine stress echocardiogram which was NEGATIVE for ischemia. All available evidence suggested that his presenting symptoms were not cardiac in origin. His pain DID resolve with nitroglycerin prior to arrival in ER. Musculoskeletal etiologies and esophageal etiologies could have caused his pain as both can respond to nitroglycerin. At discharge I advised protonix 40mg once daily in the event his pain was upper GI in origin. He will need close f/u shortly after discharge. If pain symptoms recur he may need cardiology referral for consideration of additional testing and/or GI referral for consideration of EGD. (2) Tachycardia: Patient had sinus tachycardia upon ER presentation. The tachycardia lasted for a few hours then self-resolved. He never had a.fib or other dysrhythmia. Certainly the pain he had experienced may have caused the tachycardia. Again all available evidence would argue against ACS/cardiac causes. D-dimer was normal. Hemoglobin was stable at 13.5. Perhaps mild volume depletion (he was hyponatremic) was the cause. The tachycardia resolved after fluids and time. (3) Elevated lipase: Lipase was 93 at time of admission (normal 11-82). He never had abdominal pain. Never had symptoms suggestive of acute pancreatitis. Repeat level was normal at 76. Perhaps the lipase was scantly elevated due to dehydration. He was eating/drinking normally during the stay. (4) Hyponatremia: Presenting Na 129, improving to 133 at discharge. Recommend repeat BMP within a week of discharge for stability. Na improved with IV fluids. (5) Depression: Cont fluoxetine. (6) Seizure disorder: Cont dilantin as previous. (7) Dyslipidemia: Cont statin as previous. (8) Hypertension: Controlled without medications. (9) Hemiparesis affecting dominant side as late effect of cerebrovascular accident: h/o L MCA CVA with resulting right hemiparesis. Cont asa 81mg daily for secondary prevention. Cont statin. (10) Hypokalemia: 3.3 at admission. 4 at discharge. Plan QTc was prolonged at time of presentation. The QTc normalized with correction of his low K. He never had dysrhythmia (a.fib, etc) during the stay. Total Time Total Time Spent Total Time Spent (In Minutes): 40 Discharge Plan Discharge Items [facility] Disposition[facility] Reason For Visit: CHEST PAIN Discharge Diagnosis: Chest pain - resolved; no evidence of heart attack; stress test NORMAL. Activity: Resume your previous activity Non-emergency contact: Primary Care Provider Call non-emergency contact if: you have any medication questions, your symptoms worsen, your pain is not controlled, your pain is unusual for you, your pain is concerning for you and you have a fever Follow-up/Referrals: Zachary HENDRICKSON [Primary Care Provider] - Diet: Heart Healthy Addtl Attending Provider Instructions: Mr Mark was hospitalized for chest pain. By report it was relieved with nitroglycerin. 3 troponin levels were all normal. D-dimer test for PE blood clots was normal. Telemetry during the stay was normal. He had mildly low sodium levels during the visit - initial Na level was 129, improving to 133 with IV fluids. He had mildly low potassium levels - this normalized with supplementation. Dobutamine stress echocardiogram was performed. This returned normal. There was no evidence of any ischemia. Ejection fraction was normal. Possible that the pain was GI in origin or musculoskeletal. I am placing him on once daily protonix 40mg. Recommend a GI consultation for consideration of EGD. He complained of chronic nasal congestion - I am placing him on nasocort for such. If he has recurrent chest pains would need to see cardiology for consideration of additional testing. Please repeat a BMP in 3-4 days for stability of electrolytes. Also obtain phenytoin level at that time. Finally, please STOP losartan use. This medication was held while here and his blood pressures were normal without it. Return to [place] if - * recurrent chest pains occur * shortness of breath * severe abdominal pain * any other concerns Pending Studies at Discharge: No Skilled Items Patient informed of condition?: Yes DNR: No Discharge Level of Care: Other Communicable Disease: No Discharge Prognosis: Stable Lines: None Urinary Catheter: No Medications and DC Order Prescriptions: New pantoprazole 40 mg Tablet,Delayed Release (Dr/Ec) 40 mg PO QAM Qty: 30 2RF triamcinolone acetonide [Nasacort] 55 mcg Aerosol,[place] 2 spray SHAYLA DAILY Qty: 1 2RF Continued atorvastatin 20 mg tablet 20 mg PO HS levalbuterol tartrate [Xopenex HFA] 45 mcg/actuation HFA aerosol inhaler 2 inh inhalation Q6H PRN (Reason: Shortness Of Breath) fluoxetine 10 mg capsule 10 mg PO QAM risperidone 2 mg tablet 2 mg PO HS Rx Instructions: TAKE ALONG WITH 2-3MG TABLETS = 8MG DAILY AT BEDTIME. Alvesco 160 mcg/actuation Hfa Aerosol Inhaler 2 puff INHALATION Q12H risperidone 3 mg Tablet 6 mg PO HS Rx Instructions: TAKE TWO TABLETS DAILY AT BEDTIME. TAKE ALONG WITH 2MG TABLET = 8MG DAILY AT BEDTIME. phenytoin sodium extended 100 mg Capsule 200 mg PO 4XWK Rx Instructions: Monday,Monday,Monday and Monday at bedtime phenytoin sodium extended 100 mg Capsule 300 mg PO QAM aspirin 81 mg Tablet,Delayed Release (Dr/Ec) 81 mg PO QAM Discontinued losartan 50 mg Tablet 50 mg PO QAM Admission Data Admit Date/Time: 04/06/22 22:13 Attending Provider: Robbin Jeffers Admit Provider: Jada Mix Primary Care Provider: Zachary HENDRICKSON Other Providers: Sedrick Campbell Other Interventions: Discharge Summary Assessment (RN) Last Done: 04/07/22 18:04 Coding Level of Care Code 65478 OBS Care - Discharge Diagnoses Retrosternal chest pain R07.2 Tachycardia R00.0 Elevated lipase R74.8 Hyponatremia E87.1 Depression F32.9 Seizure disorder G40.909 Dyslipidemia E78.5 Hypertension I10 Hemiparesis affecting dominant side as late effect of cerebrovascular accident I69.359 Hypokalemia E87.6
--- NOTE | 2022-04-07 19:47 | Billing Data ---
Date of Service April 07, 2022 Coding Level of Care Code INT OBSERVATION CARE 70M LVL 3
[2022-04-07] MEDS ORDERED: ATORVASTATIN 20 MG TAB PO SCH (21:00)
[2022-04-08] MEDS ORDERED: PANTOprazole 40 MG TAB PO SCH (09:00)
[2022-04-08] MEDS ORDERED: PHENYTOIN SODIUM ER 100 MG CAP PO SCH (21:00)
== END 2022-04-07 19:03 ==
LOC: 4W 19:23 → ED 19:23 → SUATTDRO 22:13 → 4W 04-07 00:25